=== PATIENT | female | born 1985 | race Two or more races ===

== ENCOUNTER 2024-05-24 08:45 | Outpatient (AMB) | payer BC, SELFPAY ==
--- NOTE | 2024-05-24 08:42 | OBCLNT_ITS ---
Vital Signs 05/24/24 09:07 Height 1.6 m Height Method Stated Weight 96.842 kg Weight Measurement Method Standing Scale BMI 37.8 BP 117/81 Blood Pressure Source Automatic Cuff Blood Pressure Location Left Upper Arm Position Sitting Respiration 14 Pulse 85 Pulse Source Monitor Temp 97.3 F Temp Source Oral Pulse Oximetry (%) 98 Oxygen Delivery Method Room Air Allergies/Home Meds Allergies & Medications Allergies No Known Allergies Allergy (Verified 05/24/24 08:43) Medication Reconciliation blood sugar diagnostic (Blood Glucose Test strips) #120 ea 05/24/24 [Rx] blood-glucose meter #1 ea 05/24/24 [Rx] labetalol 200 mg tablet 200 mg PO BID 30 days #60 tabs 05/24/24 [Rx] lancets 26 gauge #100 ea 05/24/24 [Rx] metformin 500 mg tablet 500 mg PO BIDWMEAL 30 days #60 tabs 05/24/24 [Rx] Intake Visit Data Collection New Patient or Established: Established Patient (seen at [facility] within 3 years) Reason for Visit:: care Seen by Clinical Staff ONLY (RN/MA): No Aircraft Systems Technician Required: Yes 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 1. Little interest or pleasure in doing things: not at all 2. Feeling down, depressed, or hopeless: not at all Total score: 0 PHQ-9 3. Trouble falling or staying asleep, or sleeping too much: Not at all 4. Feeling tired or having little energy: Not at all 5. Poor appetite or overeating: Not at all 6. Feeling bad about yourself - or that you are a failure or have let yourself or your family down: Not at all 7. Trouble concentrating on things, such as reading the newspaper or watching television: Not at all 8. Moving or speaking so slowly that other people could have noticed? - Or the opposite - being so fidgety or restless that you have been moving around a lot more than usual: not at all 9. Thoughts that you would be better off or of hurting yourself in some way: Not at all Total score: 0 Source: Developed by Drs. Chandan Miranda, Polly Mobley, Wood Torres and colleagues, with an educational gale from [employer]. Depression screen completed yes Social History Living Situation History Marital Status: Lives With: Family Housing: House Tobacco History Smoking Status: Never smoker Second Hand Smoke Exposure: No Alcohol History Alcohol Intake: Never Substance Use History Substance Use: no Domestic Abuse History Do You Feel Safe at Home: Yes Past Medical History Past Medical History Have you ever been diagnosed with any of the following: Neurological Problems Cerebrovascular Accident (CVA): No Transient Ischemic Attacks (TIA): No Dementia: No Alzheimer's Disease: No Parkinson's Disease: No Brain Tumor: No Meningitis: No Seizures: No Epilepsy: No Multiple Sclerosis: No Cerebral Palsy: No Amyotrophic Lateral Sclerosis (ALS/Margarette Gehrig's): No Guillain-[place] Syndrome: No Spina Bifida: No Paralysis: No Peripheral Neuropathy: No David's Palsy: No Subdural Hematoma: No Migraine: No Head Trauma: No Spinal Cord Injury: No Traumatic Brain Injury: No Cardiology Problems Myocardial Infarction: No Cardiac Arrhythmia: No Atrial Fibrillation: No Angina: No Heart Murmur: No Coronary Artery Disease: No Atherosclerotic Heart Disease: No Peripheral Vascular Disease: No Hypercholesterolemia: No Aneurysm: No Congestive Heart Failure: No Congenital Heart Disease: No Valvular Heart Disease: No Rheumatic Fever: No Cardiomyopathy: No Edema: No Pericarditis: No Cellulitis: No Hypertension: Yes (TAKES MED) Varicose Veins: No Respiratory Problems Chronic Obstructive Pulmonary Disease (COPD): No Asthma: No Bronchitis: No Emphysema: No Pneumonia: No Pulmonary Fibrosis: No Tuberculosis: Yes (2019 NO MED POSITIVE TEST) Pulmonary Embolism: No Pulmonary Edema: No Sleep Apnea: No CPAP Dependent: No Respiratory Aspiration: No Dyspnea: No Orthopnea: No Hx Cough: No Cough: No Wheezing: No Chest Deformities: No Smoking: No Smoking Cessation Counseling: No Smoking Exposure: No Tobacco Use: No Clubbing: No Exposure to Respiratory Irritants: No Intubation: No Stomache/Intestinal Problems Liver Cancer: No Hepatitis: No Cirrhosis: No Pancreatic Cancer: No Pancreatitis: No Celiac Disease: No Gall Bladder Disease: Yes (LAP 2002) Gastrointestinal Bleed: No Esophageal Varices: No Chapa's Esophagus: No Colitis: No Ulcerative Colitis: No Diverticulitis: No Diverticulosis: No Ulcer: No Colorectal Cancer: No Irritable Bowel: No Crohn's Disease: No Obstructive Bowel: No Hiatal Hernia: No Hemorrhoids: No Gastroesophageal Reflux Disease: Yes (OTC) Polyps: No Obesity: Yes Genital/Urinary Problems Chronic Kidney Disease: No Renal Disease: No Kidney Stones: Yes (NO SURG) Polycystic Kidney Disease: No Neurogenic Bladder: No Inguinal Hernia: No Dialysis: No Prostate Cancer: No Benign Prostatic Hyperplasia: No Reproductive Problems Breast Cancer: No Endometriosis: No Fibroids: No Genital Herpes: No Gonorrhea: No Pelvic Inflammatory Disease: No Polycystic Ovarian Syndrome: No Previous Pregnancies: Yes (X4) Syphilis: No Musculoskeletal Problems Muscular Dystrophy: No Myasthenia Gravis: No Marfan's Syndrome: No Bone Cancer: No Arthritis: No Rheumatoid Arthritis: No Osteoporosis: No Degenerative Disk Disease: Yes Gout: No Scoliosis: No Carpal Tunnel Syndrome: No Fibromyalgia: No Fractures: No Degenerative Joint Disease: No Osteomyelitis: No Poliovirus: No Head,Eye,Nose,Throat Problems Cataracts: No Glaucoma: No Blind: No Retinal Detachment: No Macular Degeneration: No Chronic Ear Infections: No Deafness: No Eye Prosthesis: No Endocrine Problems Diabetes Mellitus Type 1: No Diabetes Mellitus Type 2: Yes Hypoglycemia: No Sanam's Syndrome: No [place]'s Disease: No Hyperthyroidism: No Hypothyroidism: Yes (TAKES MED) Thyroid Cancer: No Parathyroid Disease: No Pituitary Disease: No Systemic Lupus Erythematosus: No Syndrome of Inappropriate Antidiuretic Hormone: No Adrenal Disease: No Graves' Disease: No Blood Problems Anemia: No Leukemia: No Hemophilia: No Thalassemia: No Sickle Cell Disease: No Clotting Problems: No Psychologic Problems Schizophrenia: No Recreational Drug Use: No Bipolar Disorder: No Depression: No Anxiety: No Behavior Problems: No Self-Mutilation: No Attention Deficit Disorder: No Attention Deficit Hyperactivity Disorder: No Depression: No Post Traumatic Stress Disorder: No Eating Disorder: No Other Problems Hospitalization: No Autoimmune Disease: No Down Syndrome: No Autism: No Developmental Delay: No Cosmetic Surgery: No Shingles: No Falls: No Blood Transfusions: No Blood Transfusion Reaction: No Anesthesia Reactions: Yes (GI UPSET) Organ Transplant: No Chemotherapy: No Radiation Therapy: No Hyperbaric Therapy: No MRSA: No VRSA: No Vancomycin-Resistant Enterococci: No Human Immunodeficiency Virus (HIV): No Chicken Pox: Yes Measles: Yes Mumps: No Rubella (Cymraes Measles): No Pertussis: No Klebsiella Pneumoniae Carbapenemase Producing Bacteria: No Clostridium Difficile: No Hepatitis A: No Hepatitis B: No Hepatitis C: No Communicable Disease: No Cancer: No Cervical Cancer: No Lung Cancer: No Ovarian Cancer: No Surgical History Angioplasty: No Bariatric Surgery: No Breast Surgery: No Cancer Surgery: No Carotid Endarterectomy: No Pacemaker: No History of Present Illness HPI Narrative 33yo @ 33w2d presents for transfer of care from an outside facility. LMP 7-, ELIZABETH 07-06-2024 based on 10w6d ultrasound on 12-15-2023. History includes advanced maternal age, hypertension, and hypothyroidism. Currently on metformin, labetalol, [place] Thyroid, vitamins, and pantoprazole. Allergic to diphenhydramine. History of 2 C-sections in 2009 and 2013. Patient reports pressure and pain in legs, as well as visual symptoms. Monitoring for preeclampsia due to symptoms. scheduled for June 22 due to high blood pressure. FHR normal at 145 bpm. Patient is checking blood sugars at home but awaiting lancets from pharmacy. Physical Examination: - heart rate: 145 bpm Diagnostic Test Results and Labs: - Ultrasound (12-15-2023): 10-week 6-day ultrasound estimated the due date as 07-04-2024 - Panel (12-02-2023): Blood group O-positive, antibody screen negative, rubella immune, RPR non-reactive, hepatitis B-negative, HIV-negative - TSH (12-02-2023): 0.71 - Gonorrhea and chlamydia (12-02-2023): Negative - Glucose Tolerance Test (12-02-2023): One-hour result was 141 - Hemoglobin A1C (12-02-2023): 6.6 - Cystic fibrosis screen (12-02-2023): Negative OB Initial Visit Menstrual History Menstrual reliability: definite Flow: normal Menstrual regularity: irregular Monthly: No Age at menarche: 7 On control pills at conception: No Date of positive home test: 11/11/23 Associated symptoms (LMP): Reports amenorrhea, nausea, fatigue and irritability OB History : 6 Para: 2 Hx # Pregnancies: 0 Hx Total # of Abortions (Spontaneous & Elective): 3 # of Living Children: 2 Delivery History 1st : Child's name: Alex date: 01/03/10 sex: male Gestational age at delivery (weeks): 36 Delivery type: weight (lbs): 2260 g History of depression before or after : No 2nd : Child's name: Mila date: 08/24/13 sex: female Gestational age at delivery (weeks): 38 Delivery type: weight (lbs): 3682 g History of depression before or after : No Infection History & Risk Evaluation History of STDs: none HIV risk evaluation: low risk Hepatitis B risk evaluation: low risk Patient or partner has history of Genital Herpes: No Varicella/chicken pox status: previous disease Genetic Screening & History Genetic Screening/Teratology Counseling - Includes patient, baby's father, or anyone in either family with: 1. Patient's age 35 years or older as of estimated date of delivery: Yes Infection History Other (see comments) Source: [employer] Review of Systems Review of Systems Systems Reviewed: All systems reviewed, normal except as documented Constitutional Constitutional: Reports fatigue Gastrointestinal Gastrointestinal: Reports nausea Genitourinary Genitourinary: Reports amenorrhea Psychiatric Psychiatric: Reports irritability Endocrine Endocrine: Reports fatigue Exam General Limitations: no limitations General Appearance: alert, in no apparent distress, comfortable, cooperative, healthy appearing, well developed and well groomed Head Head exam: atraumatic, normocephalic and normal inspection Neck Neck exam: Present normal inspection, full ROM and trachea midline Chest Chest inspection: Present normal inspection and symmetric chest wall rise Abdominal Abdominal exam: Present soft and normal bowel sounds External exam: Present normal external exam Speculum exam: Present normal speculum exam Exp External exam: Present normal Extremities Extremities exam: Present normal inspection and full ROM Neuro Neurological exam: Present alert, oriented X3 and CN II-XII intact Psych Psychiatric exam: Present normal affect and normal mood Skin Skin exam: Present warm, dry, intact and normal color Assessment & Plan Diagnosis / Problem List (1) Hypothyroidism affecting : Status: Acute (2) Maternal care for low transverse scar from previous delivery: Status: Acute Plan: Increase antihypertensive medication, new prescription sent to [facility]. Obtain labs to evaluate for preeclampsia. Follow up in one week to review lab results. Continue metformin 500 mg BID. Check blood glucose 4 times daily: fasting and 3 post-prandial. Await lancets from pharmacy for home monitoring. Continue [place] Thyroid 90 mg daily. Continue vitamins. Follow-up ultrasound recommended. Maintain scheduled for June 22. (3) Chronic hypertension affecting : Status: Acute (4) Type 2 diabetes mellitus affecting in third trimester, antepartum: Status: Acute (5) Supervision of high risk , unspecified, third trimester: Status: Acute Office Procedures OB Clinic LOC & Office Proc's Nursing/Assessment Patient Status: Initial/New Patient OB Clinic Nursing Assessment: Medication Reconciliation, Update PMH in EMR and Vital Signs OB Clinic Coordination of Care: AMA, Complex Care and Chronic Disease 1-5, Consent,records obtained, informed consent, Education Simp Pt/Fam, Lab and Imaging orders, Results/Orders obtained and Staff clarify orders Special Needs: Heart tones New Patient Charge New Patient Point Assignment: 1154 New Patient Point Charge: PROPERTY DISPOSAL MANAGER Level 4 ([id number]) Established Patient Charge Established Patient Point Charge: EP Level 4 (120-155) Antepartum Initial or Follow-up Antepartum Initial Visit: Yes OB Ultrasound OB Ultrasound Ultrasound technique:: transabdominal
[2024-05-24 09:07] VITALS: BP 117/81; PULSE 85; RESP 14; TEMP 36.3; O2SAT 98; BMI 37.8
== END 2024-05-24 09:43 | disposition home or self-care (01) ==
LOC: HODSOBC 08:45
PROVIDERS: PCP Obstetrics & Gynecology; Supervising Provider Obstetrics & Gynecology; Visit Provider Obstetrics & Gynecology
DX: O09.523 Supervision of elderly multigravida, third trimester (principal); O09.293 Supervision of pregnancy with other poor reproductive or obstetric history, third trimester; O34.211 Maternal care for low transverse scar from previous cesarean delivery; O09.893 Supervision of other high risk pregnancies, third trimester; O99.283 Endocrine, nutritional and metabolic diseases complicating pregnancy, third trimester; E03.9 Hypothyroidism, unspecified; O10.913 Unspecified pre-existing hypertension complicating pregnancy, third trimester; O24.113 Pre-existing type 2 diabetes mellitus, in pregnancy, third trimester; Z3A.33 33 weeks gestation of pregnancy; Z79.84 Long term (current) use of oral hypoglycemic drugs; Z79.899 Other long term (current) drug therapy
CPT/HCPCS: 99204; 99214; Z1032; G0463

== ENCOUNTER → 2024-05-26 | Outpatient (CLI) | payer BC, SELFPAY ==
[2024-05-26 09:45] LABS: Alanine Aminotransferase 79 U/L (10-49); Albumin, Serum 3.7 gm/dL (3.5-5.0); Albumin/Globulin Ratio 1.6 (1.2-2.2); Alkaline Phosphatase 127 U/L (46-116); Anion Gap 12 (7-16); Aspartate Amino Transferase 66 U/L (0-34); BUN/Creatinine Ratio 18 Ratio (12-20); Bilirubin,Total 0.4 mg/dL (0.3-1.2); Blood Urea Nitrogen 9 mg/dL (9-23); Calcium 8.7 mg/dL (8.3-10.6); Calcium (Corrected) 8.9 mg/dL (8.5-10.1); Carbon Dioxide 20.3 mMol/L (20.0-31.0); Chloride 106 mMol/L (98-107); Creatinine (Component) 0.5 mg/dL (0.6-1.3); Globulin 2.3 gm/dL (2.3-3.5); Glucose 109 mg/dL (74-106); LDH (Lactate Dehydrogenase) 165 U/L (120-246); Osmolality,Calculated 275 (275-295); Potassium 4.1 mMol/L (3.4-5.1); Sodium 138 mMol/L (136-145); eGFR > 60 See Note
== END | disposition home or self-care (01) ==
LOC: COPL 08:34
PROVIDERS: PCP Physician Assistant; Referring Provider Obstetrics & Gynecology; Visit Provider Obstetrics & Gynecology
DX: O09.93 Supervision of high risk pregnancy, unspecified, third trimester (principal)
CPT/HCPCS: 36415; 80053; 83615

== ENCOUNTER 2024-05-30 08:50 | Outpatient (AMB) | payer BC, SELFPAY ==
--- NOTE | 2024-05-30 08:56 | AMB.OBINITIA ---
Vital Signs 05/30/24 08:57 Height 1.6 m Height Method Stated Weight 98.033 kg Weight Measurement Method Standing Scale BMI 38.2 BP 113/75 Blood Pressure Source Automatic Cuff Blood Pressure Location Left Upper Arm Position Sitting Respiration 16 Pulse 88 Pulse Source Monitor Temp 96.3 F L Temp Source Oral Pulse Oximetry (%) 99 Oxygen Delivery Method Room Air Allergies/Home Meds Allergies & Medications Allergies No Known Allergies Allergy (Verified 05/30/24 08:57) Medication Reconciliation blood sugar diagnostic (Blood Glucose Test strips) #120 ea 05/24/24 [Rx Confirmed 05/30/24] blood-glucose meter #1 ea 05/24/24 [Rx Confirmed 05/30/24] labetalol 200 mg tablet 200 mg PO BID 30 days #60 tabs 05/24/24 [Rx Confirmed 05/30/24] lancets 26 gauge #100 ea 05/24/24 [Rx Confirmed 05/30/24] metformin 500 mg tablet 500 mg PO BIDWMEAL 30 days #60 tabs 05/24/24 [Rx Confirmed 05/30/24] levothyroxine 50 mcg tablet 50 mcg PO QDAY 30 days #30 tabs 05/30/24 [Rx] levothyroxine 88 mcg tablet 88 mcg PO QDAY 30 days #30 tabs 05/30/24 [Rx] Intake Visit Data Collection New Patient or Established: Established Patient (seen at [facility] within 3 years) Reason for Visit:: C Seen by Clinical Staff ONLY (RN/MA): No Lamp Tester And Inspector Required: Yes Lamp Tester And Inspector's name/title: JOB SPENCER MA Do You Feel Safe at Home: Yes Authorities Contacted: N/A PCP or OBGYN visit in last 3 months: Yes Date of Last PCP or OBGYN visit: 05/26/24 Hx Now: Yes Are you currently on any form of Control: No Pain Present Currently: No Pain Scale Used: Carrero-Schofield/Numerical Pain scale:: 0 Smoking Status Smoking Status: Never smoker Questionnaires Covid-19 Vaccine Questionnaire Has patient been vacinated for Covid-19 Have you been vacinated for Covid-19: Yes PHQ-9 PHQ-2 Over the last 2 weeks, how often have you been bothered by any of the following problems? 1. Little interest or pleasure in doing things: not at all 2. Feeling down, depressed, or hopeless: not at all Total score: 0 PHQ-9 3. Trouble falling or staying asleep, or sleeping too much: Not at all 4. Feeling tired or having little energy: Not at all 5. Poor appetite or overeating: Not at all 6. Feeling bad about yourself - or that you are a failure or have let yourself or your family down: Not at all 7. Trouble concentrating on things, such as reading the newspaper or watching television: Not at all 8. Moving or speaking so slowly that other people could have noticed? - Or the opposite - being so fidgety or restless that you have been moving around a lot more than usual: not at all 9. Thoughts that you would be better off or of hurting yourself in some way: Not at all Total score: 0 Source: Developed by Drs. Chandan Miranda, Polly Mobley, Wood Torres and colleagues, with an educational gale from [employer]. Depression screen completed yes Social History Living Situation History Lives With: Family Housing: House Tobacco History Smoking Status: Never smoker Second Hand Smoke Exposure: No Alcohol History Alcohol Intake: Never Substance Use History Substance Use: no Domestic Abuse History Do You Feel Safe at Home: Yes Past Medical History Past Medical History Have you ever been diagnosed with any of the following: Neurological Problems Cerebrovascular Accident (CVA): No Transient Ischemic Attacks (TIA): No Dementia: No Alzheimer's Disease: No Parkinson's Disease: No Brain Tumor: No Meningitis: No Seizures: No Epilepsy: No Multiple Sclerosis: No Cerebral Palsy: No Amyotrophic Lateral Sclerosis (ALS/Margarette Gehrig's): No Guillain-[place] Syndrome: No Spina Bifida: No Paralysis: No Peripheral Neuropathy: No David's Palsy: No Subdural Hematoma: No Migraine: No Head Trauma: No Spinal Cord Injury: No Traumatic Brain Injury: No Cardiology Problems Myocardial Infarction: No Cardiac Arrhythmia: No Atrial Fibrillation: No Angina: No Heart Murmur: No Coronary Artery Disease: No Atherosclerotic Heart Disease: No Peripheral Vascular Disease: No Hypercholesterolemia: No Aneurysm: No Congestive Heart Failure: No Congenital Heart Disease: No Valvular Heart Disease: No Rheumatic Fever: No Cardiomyopathy: No Edema: No Pericarditis: No Cellulitis: No Hypertension: Yes (TAKES MED) Varicose Veins: No Respiratory Problems Chronic Obstructive Pulmonary Disease (COPD): No Asthma: No Bronchitis: No Emphysema: No Pneumonia: No Pulmonary Fibrosis: No Tuberculosis: Yes (2019 NO MED POSITIVE TEST) Pulmonary Embolism: No Pulmonary Edema: No Sleep Apnea: No CPAP Dependent: No Respiratory Aspiration: No Dyspnea: No Orthopnea: No Hx Cough: No Cough: No Wheezing: No Chest Deformities: No Smoking: No Smoking Cessation Counseling: No Smoking Exposure: No Tobacco Use: No Clubbing: No Exposure to Respiratory Irritants: No Intubation: No Stomache/Intestinal Problems Liver Cancer: No Hepatitis: No Cirrhosis: No Pancreatic Cancer: No Pancreatitis: No Celiac Disease: No Gall Bladder Disease: Yes (LAP 2002) Gastrointestinal Bleed: No Esophageal Varices: No Chapa's Esophagus: No Colitis: No Ulcerative Colitis: No Diverticulitis: No Diverticulosis: No Ulcer: No Colorectal Cancer: No Irritable Bowel: No Crohn's Disease: No Obstructive Bowel: No Hiatal Hernia: No Hemorrhoids: No Gastroesophageal Reflux Disease: Yes (OTC) Obesity: Yes Genital/Urinary Problems Renal Disease: No Kidney Stones: Yes (NO SURG) Polycystic Kidney Disease: No Neurogenic Bladder: No Inguinal Hernia: No Dialysis: No Prostate Cancer: No Benign Prostatic Hyperplasia: No Reproductive Problems Breast Cancer: No Endometriosis: No Fibroids: No Genital Herpes: No Gonorrhea: No Pelvic Inflammatory Disease: No Polycystic Ovarian Syndrome: No Previous Pregnancies: Yes (X4) Syphilis: No Musculoskeletal Problems Muscular Dystrophy: No Myasthenia Gravis: No Marfan's Syndrome: No Bone Cancer: No Arthritis: No Rheumatoid Arthritis: No Osteoporosis: No Degenerative Disk Disease: Yes Gout: No Scoliosis: No Carpal Tunnel Syndrome: No Fibromyalgia: No Fractures: No Degenerative Joint Disease: No Osteomyelitis: No Poliovirus: No Head,Eye,Nose,Throat Problems Cataracts: No Glaucoma: No Blind: No Retinal Detachment: No Macular Degeneration: No Chronic Ear Infections: No Deafness: No Eye Prosthesis: No Endocrine Problems Diabetes Mellitus Type 1: No Diabetes Mellitus Type 2: Yes Hypoglycemia: No Sanam's Syndrome: No Coryell's Disease: No Hyperthyroidism: No Hypothyroidism: Yes (TAKES MED) Thyroid Cancer: No Parathyroid Disease: No Pituitary Disease: No Systemic Lupus Erythematosus: No Syndrome of Inappropriate Antidiuretic Hormone: No Adrenal Disease: No Graves' Disease: No Blood Problems Anemia: No Leukemia: No Hemophilia: No Thalassemia: No Sickle Cell Disease: No Clotting Problems: No Psychologic Problems Schizophrenia: No Recreational Drug Use: No Bipolar Disorder: No Depression: No Anxiety: No Behavior Problems: No Self-Mutilation: No Attention Deficit Disorder: No Attention Deficit Hyperactivity Disorder: No Depression: No Post Traumatic Stress Disorder: No Eating Disorder: No Other Problems Hospitalization: No Down Syndrome: No Autism: No Developmental Delay: No Cosmetic Surgery: No Shingles: No Falls: No Blood Transfusions: No Blood Transfusion Reaction: No Anesthesia Reactions: Yes (GI UPSET) Organ Transplant: No Chemotherapy: No Radiation Therapy: No Hyperbaric Therapy: No MRSA: No VRSA: No Vancomycin-Resistant Enterococci: No Human Immunodeficiency Virus (HIV): No Chicken Pox: Yes Measles: Yes Mumps: No Rubella ([place] Measles): No Pertussis: No Klebsiella Pneumoniae Carbapenemase Producing Bacteria: No Clostridium Difficile: No Hepatitis A: No Hepatitis B: No Hepatitis C: No Communicable Disease: No Cancer: No Cervical Cancer: No Lung Cancer: No Ovarian Cancer: No Surgical History Angioplasty: No Bariatric Surgery: No Breast Surgery: No Cancer Surgery: No Carotid Endarterectomy: No Pacemaker: No History of Present Illness HPI Narrative Patient reports experiencing persistent leg tightening and denies any leaking or bleeding. She also mentions feeling pressure in her feet, which could be related to [place] contractions, normal uterine contractions during . Patient is managing gestational diabetes and has been monitoring her blood glucose levels. Her morning fasting glucose levels range from 95 to 104 mg/dL, but her post-lunch and post-dinner glucose levels are dropping to concerning levels, with afternoon readings around 100-102 mg/dL and evening readings between 84-91 mg/dL. Patient is also being treated for thyroid issues and is currently taking thyroid medication at doses of 90 mg and 15 mg. She is and managing gestational diabetes. Due to low glucose readings, she is advised to adjust her metformin dosage to one tablet twice a day. Regarding movement, the patient reports that the baby is active, with increased movement noted during the daytime. A heart rate of 165 bpm was observed during the visit, which was noted as normal. The patient is scheduled to see a specialist on the and will be set up for monitoring at the hospital before that. OB Initial Visit Menstrual History Menstrual reliability: definite Flow: normal Menstrual regularity: regular Monthly: Yes Review of Systems Review of Systems Systems Reviewed: All systems reviewed, normal except as documented Exam General Limitations: no limitations General Appearance: alert, in no apparent distress, comfortable, cooperative, healthy appearing, well developed and well groomed Head Head exam: atraumatic, normocephalic and normal inspection Neck Neck exam: Present normal inspection, full ROM and trachea midline Chest Chest inspection: Present normal inspection and symmetric chest wall rise Abdominal Abdominal exam: Present soft and normal bowel sounds Extremities Extremities exam: Present normal inspection and full ROM Back Back exam: Present normal inspection and full ROM Psych Psychiatric exam: Present normal affect and normal mood Skin Skin exam: Present warm, dry, intact and normal color Assessment & Plan Diagnosis / Problem List (1) Hypothyroidism affecting : Status: Acute Plan: Hypothyroidism in : - Continue current thyroid medication: 90 mg and 50 mg doses. - Prescription for thyroid medication to be sent to pharmacy. (2) Maternal care for low transverse scar from previous delivery: Status: Acute (3) Chronic hypertension affecting : Status: Acute Plan: Hypertension in : - Continue current antihypertensive medication. - Monitor for symptoms of preeclampsia, including swelling and increased blood pressure. - Follow up at next week's appointment. (4) Type 2 diabetes mellitus affecting in third trimester, antepartum: Status: Acute Plan: Diagnostic Test Results and Labs: - Blood glucose monitoring results: - Mornin-104 mg/dL - After breakfast: Within normal range (specific values not provided) - After lunch: 100-102 mg/dL - After dinner: 84-91 mg/dL - heart rate: 165 bpm (normal) with Gestational Diabetes Mellitus: - Reduce metformin dosage to 1 tablet twice daily (morning and night). - Continue glucose monitoring and review numbers at next week's appointment. - Arrange for monitoring at the hospital before June 06 specialist appointment. - Follow up in one week. (5) Supervision of high risk , unspecified, third trimester: Status: Acute Plan: To L&D for PIH panel , NST and BPP Office Procedures OB Clinic LOC & Office Proc's Nursing/Assessment Patient Status: Established Patient OB Clinic Nursing Assessment: BP Monitoring, Medication Reconciliation, Update PMH in EMR and Vital Signs OB Clinic Coordination of Care: Consent,records obtained, informed consent, Education Simp Pt/Fam, Results/Orders obtained and Staff clarify orders Special Needs: Heart tones Established Patient Charge Established Patient Point Assignment: 110 Established Patient Point Charge: EP Level 3 (80-115) Antepartum Initial or Follow-up Antepartum Initial Visit: No Antepartum Follow up Visit: Yes
[2024-05-30 08:57] VITALS: BP 113/75; PULSE 88; RESP 16; TEMP 35.7; O2SAT 99; BMI 38.2
== END 2024-05-30 09:12 | disposition home or self-care (01) ==
LOC: HODSOBC 08:50
PROVIDERS: PCP Obstetrics & Gynecology; Supervising Provider Obstetrics & Gynecology; Visit Provider Obstetrics & Gynecology
DX: O24.113 Pre-existing type 2 diabetes mellitus, in pregnancy, third trimester (principal); O34.211 Maternal care for low transverse scar from previous cesarean delivery; O10.919 Unspecified pre-existing hypertension complicating pregnancy, unspecified trimester; E03.9 Hypothyroidism, unspecified
CPT/HCPCS: 99213; G0463

== ENCOUNTER 2024-05-30 09:27 | Observation (INO) | payer BC, SELFPAY ==
[2024-05-30] VITALS (12 sets, daily range): BP systolic 113–136; BP diastolic 58–79; PULSE 74–85; RESP 16–99; TEMP 36.5; BMI 38.2
--- NOTE | 2024-05-30 10:04 | XR_ITS ---
Examination: Complete OB ultrasound greater than 14 weeks Date and time of exam: May 30, 2024 1056 hours INDICATIONS: Diagnosis hypothyroidism, diagnosis type 2 diabetes, diagnosis -induced hypertension Findings: Viable intrauterine single fetus with single amniotic sac presentation cephalic spine posterior Cardiac motion 150 BPM Placenta anterior grade 3 Umbilical cord insertion 3 vessel seen Amniotic fluid index 13.1 cm spine posterior Cervix 4.0 cm Ovaries obscured by bowel gas. Composite estimated gestational age based on BPD, head circumference, abdominal circumference, femur length is 36 weeks 6 days Estimated weight 3052 g. Survey of intracranial anatomy, spinal anatomy, abdominal anatomy, four-chamber heart performed with no abnormalities identified. Impression: Viable intrauterine gestation cephalic presentation.
[2024-05-30 10:59] LABS: Basophils % (Auto) 0 % (0-2.5); Eosinophils # (Auto) 0.1 Thou/mm3 (0.0-0.5); Eosinophils % (Auto) 1 % (0-10); Hematocrit 33.1 % (36.0-46.0); Hemoglobin 11.1 g/dL (12.0-16.0); Immature Granulocytes % (Auto) 0 % (0-0); Immature Granulocytes Auto 0.01 Thou/mm3 (0.00-0.00); Lymphocytes # (Auto) 1.9 Thou/mm3 (1.0-4.8); Lymphocytes % (Auto) 30 % (10-50); Mean Corpuscular HGB Conc 33.5 g/dl (31.0-37.0); Mean Corpuscular Hemoglobin 30.2 pg (25.0-35.0); Mean Corpuscular Volume 90 fL (80-100); Monocytes # (Auto) 0.4 Thou/mm3 (0.0-0.8); Monocytes % (Auto) 6 % (0-12); Neutrophils # (Auto) 3.9 Thou/mm3 (1.8-7.7); Neutrophils % (Auto) 62 % (37-80); Nucleated Red Blood Cell % 0 /100 WBC (0); Platelet Count 218 Thou/mm3 (140-440); RDW Standard Deviation 43.6 fL (36.4-46.3); Red Blood Count 3.68 Miln/mm3 (4.00-5.20); White Blood Count 6.2 Thou/mm3 (3.6-11.0)
[2024-05-30 11:15] LABS: Prothrombin Time 10.9 Seconds (9.0-12.2)
[2024-05-30 11:20] LABS: Collection Type, Urine Clean Catch
[2024-05-30 11:20] LABS: Alanine Aminotransferase 88 U/L (10-49); Albumin, Serum 3.7 gm/dL (3.5-5.0); Albumin/Globulin Ratio 1.4 (1.2-2.2); Alkaline Phosphatase 141 U/L (46-116); Anion Gap 9 (7-16); Aspartate Amino Transferase 58 U/L (0-34); BUN/Creatinine Ratio 18 Ratio (12-20); Bilirubin,Total 0.3 mg/dL (0.3-1.2); Blood Urea Nitrogen 9 mg/dL (9-23); Calcium 9.3 mg/dL (8.3-10.6); Calcium (Corrected) 9.5 mg/dL (8.5-10.1); Carbon Dioxide 20.6 mMol/L (20.0-31.0); Chloride 107 mMol/L (98-107); Creatinine (Component) 0.5 mg/dL (0.6-1.3); Globulin 2.6 gm/dL (2.3-3.5); Glucose 96 mg/dL (74-106); LDH (Lactate Dehydrogenase) 160 U/L (120-246); Osmolality,Calculated 272 (275-295); Sodium 137 mMol/L (136-145); Total Protein 6.3 gm/dL (5.7-8.2); Uric Acid 4.9 mg/dL (3.1-7.8); eGFR > 60 See Note
--- NOTE | 2024-05-30 11:20 | PD.LDPN ---
Documentation for date of: 05/30/24 OB Labor Progress Note Assessment and Plan Comments: Polina is a 38yo with SIUP at 34&5wk presenting to L&D from clinic for APFT and PIH labs per Dr. Caceres. She has a headache today, hasn't tried to take any tylenol yet. She notes no painful/regular ctx, no vaginal bleeding, no lof. Normal movement. She denies vision changes and RUQ pain. complications: CHTN taking labetalol 200mg PO BID Hypothyroidism treated with levothyroxine A2GDM treated with metformin AMA age 38 History of 2 prior sections, scheduled for RLTCS on 22 June ROS negative other than what was described above. Vitals wnl, afebrile General: well developed, well nourished, no acute distress, conversant Cardiac: normal heart rate Lungs: breathing without distress Abdomen: soft, gravid, non-tender, no rebound or guarding Extremities: no pain with palpation of calves NST: Reactive, +accels, no decels, mod stoney [place]: no regular ctx pattern Labs: Hgb 11.1 Plt 218 serum creat 0.5 AST/ALT slightly elevated but stable from 05/26 24hr UP: 243mg Radiology: Complete OB ultrasound greater than 14 weeks Date and time of exam: May 30, 2024 1056 hours INDICATIONS: Diagnosis hypothyroidism, diagnosis type 2 diabetes, diagnosis -induced hypertension Findings: Viable intrauterine single fetus with single amniotic sac presentation cephalic spine posterior Cardiac motion 150 BPM Placenta anterior grade 3 Umbilical cord insertion 3 vessel seen Amniotic fluid index 13.1 cm spine posterior Cervix 4.0 cm Ovaries obscured by bowel gas. Composite estimated gestational age based on BPD, head circumference, abdominal circumference, femur length is 36 weeks 6 days Estimated weight 3052 g. Survey of intracranial anatomy, spinal anatomy, abdominal anatomy, four-chamber heart performed with no abnormalities identified. Impression: Viable intrauterine gestation cephalic presentation. Assessment: Polina is a 38yo with SIUP at 34&5wk presenting to L&D from clinic for APFT and PIH labs. Headache resolved after Tylenol. No evidence of pre-eclampsia. Vitals wnl, benign exam. Reassuring status, GS shows 94%ile. Plan: -Continue routine follow up with OBGYN and antepartum testing -Continue labetalol and other medications as prescribed -Provided reassurance, encouraged good hydration and good adherence to diabetic diet, walking after meals, and compression stockings -Discussed return precautions Beatriz Trujillo MD
[2024-05-30 11:32] LABS: Bacteria,Urine 1+; Bilirubin,Urine Negative (Negative); Blood,Urine Negative (Negative); Clarity,Urine Clear (Clear/Hazy); Color,Urine Lt-Yellow (Lt Yel-Yel); Glucose, Urine Negative (Negative); Ketones,Urine Negative (Negative); Leukocyte Esterase,Urine Positive (Negative); Nitrite,Urine Negative (Negative); PH,Urine 6.5 (5.0-7.0); Protein,Urine Negative (Neg - Trace); RBC,Urine 1 /hpf (0-3); Specific Gravity,Urine 1.008 (1.001-1.035); Squamous Epithelial Cell,Urine 2 /hpf (0-5); Urobilinogen,Urine Negative mg/dL (0.0-1.0); WBC,Urine 1 /hpf (0-5)
[2024-05-30] MEDS: ACETAMINOPHEN 325 MG TABLET 650 MG PO (11:49)
[2024-05-30 11:56] LABS: Fibrinogen 632 mg/dL (175-375)
[2024-05-30 12:32] LABS: Creatinine,Random Urine 29 mg/dL (30-125); Protein Total, Random Urine 6 mg/dL (1-14)
== END 2024-05-30 13:10 | disposition home or self-care (01) ==
PROVIDERS: Obstetrics & Gynecology; Admitting Provider Obstetrics & Gynecology; Visit Provider Obstetrics & Gynecology
DX: O13.3 Gestational [pregnancy-induced] hypertension without significant proteinuria, third trimester (principal); O99.283 Endocrine, nutritional and metabolic diseases complicating pregnancy, third trimester; E03.9 Hypothyroidism, unspecified; O24.113 Pre-existing type 2 diabetes mellitus, in pregnancy, third trimester; E11.9 Type 2 diabetes mellitus without complications; Z3A.34 34 weeks gestation of pregnancy
CPT/HCPCS: 36415; 59025; 59899; 76805; 80053; 81001; 82570; 83615; 84156; 84550; 85025; 85384; 85610; 85730; A9270

== ENCOUNTER → 2024-05-30 | Outpatient (CLI) | payer BC, SELFPAY ==
[2024-05-30 11:30] LABS: Creatinine, Urine Volume 900 mL/24hr (600-1800); Protein Total, Urine Volume 900 mL/24hr (600-1800)
[2024-05-30 11:58] LABS: Creatinine, 24 Hour Urine 0.9 gm/24hr (0.6-1.8); Creatinine,Urine 99 mg/dL (30-125); Protein Total, 24 hr Urine 243 mg/24hr (<149); Protein Total, Urine 27 mg/dL (1-14)
== END | disposition home or self-care (01) ==
LOC: SLDO 09:41
PROVIDERS: Referring Provider Obstetrics & Gynecology; Visit Provider Obstetrics & Gynecology
DX: O09.93 Supervision of high risk pregnancy, unspecified, third trimester (principal)
CPT/HCPCS: 82570; 84156

== ENCOUNTER 2024-06-06 13:28 | Outpatient (AMB) | payer BC, SELFPAY ==
--- NOTE | 2024-06-06 13:29 | AMB.OBVISIT ---
Vital Signs 06/06/24 13:35 Height 1.6 m Height Method Stated Weight 97.579 kg Weight Measurement Method Standing Scale BMI 38.1 BP 122/78 Blood Pressure Source Automatic Cuff Blood Pressure Location Left Upper Arm Position Sitting Respiration 14 Pulse 82 Pulse Source Monitor Temp 97.2 F Temp Source Oral Pulse Oximetry (%) 97 Oxygen Delivery Method Room Air Allergies/Home Meds Allergies & Medications Allergies No Known Allergies Allergy (Verified 06/06/24 13:36) Medication Reconciliation blood sugar diagnostic (Blood Glucose Test strips) #120 ea 05/24/24 [Rx Confirmed 06/06/24] blood-glucose meter #1 ea 05/24/24 [Rx Confirmed 06/06/24] labetalol 200 mg tablet 200 mg PO BID 30 days #60 tabs 05/24/24 [Rx Confirmed 06/06/24] lancets 26 gauge #100 ea 05/24/24 [Rx Confirmed 06/06/24] metformin 500 mg tablet 500 mg PO BIDWMEAL 30 days #60 tabs 05/24/24 [Rx Confirmed 06/06/24] levothyroxine 50 mcg tablet 50 mcg PO QDAY 30 days #30 tabs 06/06/24 [Rx] levothyroxine 88 mcg tablet 88 mcg PO QDAY 30 days #30 tabs 06/06/24 [Rx] Intake Visit Data Collection New Patient or Established: Established Patient (seen at [facility] within 3 years) Reason for Visit:: CARE Seen by Clinical Staff ONLY (RN/MA): No Supervisor [employer] Required: Yes Supervisor [employer]'s name/title: JOB SPENCER MA Do You Feel Safe at Home: Yes Authorities Contacted: N/A PCP or OBGYN visit in last 3 months: Yes Date of Last PCP or OBGYN visit: 05/30/24 Hx Now: Yes Are you currently on any form of Control: No Last menstrual period: 08/30/23 Pain Present Currently: No Pain Scale Used: Carrero-Schofield/Numerical Pain scale:: 0 Smoking Status Smoking Status: Never smoker Questionnaires Covid-19 Vaccine Questionnaire Has patient been vacinated for Covid-19 Have you been vacinated for Covid-19: Yes PHQ-9 PHQ-2 Over the last 2 weeks, how often have you been bothered by any of the following problems? 1. Little interest or pleasure in doing things: not at all 2. Feeling down, depressed, or hopeless: not at all Total score: 0 PHQ-9 3. Trouble falling or staying asleep, or sleeping too much: Not at all 4. Feeling tired or having little energy: Not at all 5. Poor appetite or overeating: Not at all 6. Feeling bad about yourself - or that you are a failure or have let yourself or your family down: Not at all 7. Trouble concentrating on things, such as reading the newspaper or watching television: Not at all 8. Moving or speaking so slowly that other people could have noticed? - Or the opposite - being so fidgety or restless that you have been moving around a lot more than usual: not at all 9. Thoughts that you would be better off or of hurting yourself in some way: Not at all Total score: 0 Source: Developed by Drs. Chandan Miranda, Polly Mobley, Wood Torres and colleagues, with an educational gale from [employer]. Depression screen completed yes Social History Living Situation History Marital Status: Lives With: Family Housing: House Tobacco History Smoking Status: Never smoker Second Hand Smoke Exposure: No Alcohol History Alcohol Intake: Never Substance Use History Substance Use: no Domestic Abuse History Do You Feel Safe at Home: Yes Past Medical History Past Medical History Have you ever been diagnosed with any of the following: Neurological Problems Cerebrovascular Accident (CVA): No Transient Ischemic Attacks (TIA): No Dementia: No Alzheimer's Disease: No Parkinson's Disease: No Brain Tumor: No Meningitis: No Seizures: No Epilepsy: No Multiple Sclerosis: No Cerebral Palsy: No Amyotrophic Lateral Sclerosis (ALS/Margarette Gehrig's): No Guillain-[place] Syndrome: No Spina Bifida: No Paralysis: No Peripheral Neuropathy: No David's Palsy: No Subdural Hematoma: No Migraine: No Head Trauma: No Spinal Cord Injury: No Traumatic Brain Injury: No Cardiology Problems Myocardial Infarction: No Cardiac Arrhythmia: No Atrial Fibrillation: No Angina: No Heart Murmur: No Coronary Artery Disease: No Atherosclerotic Heart Disease: No Peripheral Vascular Disease: No Hypercholesterolemia: No Aneurysm: No Congestive Heart Failure: No Congenital Heart Disease: No Valvular Heart Disease: No Rheumatic Fever: No Cardiomyopathy: No Edema: No Pericarditis: No Cellulitis: No Hypertension: Yes (TAKES MED) Varicose Veins: No Respiratory Problems Chronic Obstructive Pulmonary Disease (COPD): No Asthma: No Bronchitis: No Emphysema: No Pneumonia: No Pulmonary Fibrosis: No Tuberculosis: Yes (2019 NO MED POSITIVE TEST) Pulmonary Embolism: No Pulmonary Edema: No Sleep Apnea: No CPAP Dependent: No Respiratory Aspiration: No Dyspnea: No Orthopnea: No Hx Cough: No Cough: No Wheezing: No Chest Deformities: No Smoking: No Smoking Cessation Counseling: No Smoking Exposure: No Tobacco Use: No Clubbing: No Exposure to Respiratory Irritants: No Intubation: No Stomache/Intestinal Problems Liver Cancer: No Hepatitis: No Cirrhosis: No Pancreatic Cancer: No Pancreatitis: No Celiac Disease: No Gall Bladder Disease: Yes (LAP 2002) Gastrointestinal Bleed: No Esophageal Varices: No Chapa's Esophagus: No Colitis: No Ulcerative Colitis: No Diverticulitis: No Diverticulosis: No Ulcer: No Colorectal Cancer: No Irritable Bowel: No Crohn's Disease: No Obstructive Bowel: No Hiatal Hernia: No Hemorrhoids: No Gastroesophageal Reflux Disease: Yes (OTC) Obesity: Yes Genital/Urinary Problems Renal Disease: No Kidney Stones: Yes (NO SURG) Polycystic Kidney Disease: No Neurogenic Bladder: No Inguinal Hernia: No Dialysis: No Prostate Cancer: No Benign Prostatic Hyperplasia: No Reproductive Problems Breast Cancer: No Endometriosis: No Fibroids: No Genital Herpes: No Gonorrhea: No Pelvic Inflammatory Disease: No Polycystic Ovarian Syndrome: No Previous Pregnancies: Yes (X4) Syphilis: No Musculoskeletal Problems Muscular Dystrophy: No Myasthenia Gravis: No Marfan's Syndrome: No Bone Cancer: No Arthritis: No Rheumatoid Arthritis: No Osteoporosis: No Degenerative Disk Disease: Yes Gout: No Scoliosis: No Carpal Tunnel Syndrome: No Fibromyalgia: No Fractures: No Degenerative Joint Disease: No Osteomyelitis: No Poliovirus: No Head,Eye,Nose,Throat Problems Cataracts: No Glaucoma: No Blind: No Retinal Detachment: No Macular Degeneration: No Chronic Ear Infections: No Deafness: No Eye Prosthesis: No Endocrine Problems Diabetes Mellitus Type 1: No Diabetes Mellitus Type 2: Yes Hypoglycemia: No [place]'s Syndrome: No Murray's Disease: No Hyperthyroidism: No Hypothyroidism: Yes (TAKES MED) Thyroid Cancer: No Parathyroid Disease: No Pituitary Disease: No Systemic Lupus Erythematosus: No Syndrome of Inappropriate Antidiuretic Hormone: No Adrenal Disease: No Graves' Disease: No Blood Problems Anemia: No Leukemia: No Hemophilia: No Thalassemia: No Sickle Cell Disease: No Clotting Problems: No Psychologic Problems Schizophrenia: No Recreational Drug Use: No Bipolar Disorder: No Depression: No Anxiety: No Behavior Problems: No Self-Mutilation: No Attention Deficit Disorder: No Attention Deficit Hyperactivity Disorder: No Depression: No Post Traumatic Stress Disorder: No Eating Disorder: No Other Problems Hospitalization: No Down Syndrome: No Autism: No Developmental Delay: No Cosmetic Surgery: No Shingles: No Falls: No Blood Transfusions: No Blood Transfusion Reaction: No Anesthesia Reactions: Yes (GI UPSET) Organ Transplant: No Chemotherapy: No Radiation Therapy: No Hyperbaric Therapy: No MRSA: No VRSA: No Vancomycin-Resistant Enterococci: No Human Immunodeficiency Virus (HIV): No Chicken Pox: Yes Measles: Yes Mumps: No Rubella (Vincentian Measles): No Pertussis: No Klebsiella Pneumoniae Carbapenemase Producing Bacteria: No Clostridium Difficile: No Hepatitis A: No Hepatitis B: No Hepatitis C: No Communicable Disease: No Cancer: No Cervical Cancer: No Lung Cancer: No Ovarian Cancer: No Surgical History Angioplasty: No Bariatric Surgery: No Breast Surgery: No Cancer Surgery: No Carotid Endarterectomy: No Pacemaker: No History of Present Illness HPI Narrative History of Present Illness The patient, Polina, had MFM EFW sono today. She reports experiencing episodes of unspecified symptoms, during which she checks her blood sugar and blood pressure, which she states are normal. The patient also complains of poor sleep quality, waking up at least 4 times per night. She attributes this to possible pressure on her bladder. The patient confirms consistent movement, noting increased activity after meals and decreased movement at night. No CTX/LOF/VB, reports good FM+ Review of Systems Review of Systems Systems Reviewed: All systems reviewed, normal except as documented Visit ELIZABETH Calculator Estimated Delivery Date Method Current WG Current Estimate 07/06/24 Ultrasound #1 35w 5d Other Estimates 07/06/24 LMP (Certain) 35w 5d Initial Weight: Not Recorded Date <del>?</del> EGA Weight Edema CTX Effacement BP Fundal ht Pres Dilation Effacement Station Visit Note Alb Glu FHR Mov 05/30/24 <del>?</del> 34w 5d 98.033 kg 113/75 165 active 06/06/24 <del>?</del> 35w 5d 97.579 kg 122/78 155 active Exam General Limitations: no limitations General Appearance: alert, in no apparent distress, comfortable, cooperative, healthy appearing, well developed and well groomed Head Head exam: atraumatic, normocephalic and normal inspection Neck Neck exam: Present normal inspection, full ROM and trachea midline Chest Chest inspection: Present normal inspection and symmetric chest wall rise Abdominal Abdominal exam: Present soft and normal bowel sounds Extremities Extremities exam: Present normal inspection and full ROM Back Back exam: Present normal inspection and full ROM Psych Psychiatric exam: Present normal affect and normal mood Skin Skin exam: Present warm, dry, intact and normal color Assessment & Plan Diagnosis / Problem List (1) Hypothyroidism affecting : Status: Acute (2) Maternal care for low transverse scar from previous delivery: Status: Acute Plan: Patient is a @35w5d with T2DM and CHTN. The fetus is estimated to weigh more than 8 pounds. The patient reports experiencing symptoms that could potentially indicate preeclampsia, including frequent urination and sleep disturbances. However, the patient states her blood sugar and blood pressure have been normal when checked at home. The clinician is concerned about the possibility of preeclampsia and wants to review the ultrasound report before making further decisions. - Obtain and review ultrasound report from hospital - Call patient with ultrasound results and recommendations - Advise patient to come to hospital for evaluation if symptoms recur, particularly to rule out preeclampsia - Consider labs to evaluate for preeclampsia, similar to previous testing - Monitor movement, noting it increases after eating and decreases at night - Follow up with patient via phone call the next day Medication refills Patient reports issues obtaining medication refills that were previously sent to the pharmacy. The specific medications mentioned were doses of 90 and 50, though the exact medications were not specified. - Provide patient with printed prescription to take to pharmacy - Verify refills were sent to correct pharmacy Pt Education Educated the patient on labor signs, including regular contractions, lower back pain, and changes in vaginal discharge. Advised avoiding heavy lifting and getting adequate rest. Instructed to contact the office immediately if any signs occur. Discussed the importance of a balanced diet rich in folic acid, iron, and calcium, and provided a list of recommended and to-avoid foods. Emphasized avoiding high-sugar foods to reduce gestational diabetes risk. Encouraged hydration and frequent, small meals for energy. (3) Chronic hypertension affecting : Status: Acute (4) Type 2 diabetes mellitus affecting in third trimester, antepartum: Status: Acute (5) Supervision of high risk , unspecified, third trimester: Status: Acute Office Procedures OB Clinic LOC & Office Proc's Nursing/Assessment Patient Status: Established Patient OB Clinic Nursing Assessment: Medication Reconciliation, Update PMH in EMR and Vital Signs OB Clinic Coordination of Care: AMA, Complex Care and Chronic Disease 1-5, Consent,records obtained, informed consent, Education Simp Pt/Fam, Results/Orders obtained and Staff clarify orders Special Needs: Heart tones Established Patient Charge Established Patient Point Assignment: 140 Established Patient Point Charge: EP Level 4 (120-155)
[2024-06-06 13:35] VITALS: BP 122/78; PULSE 82; RESP 14; TEMP 36.2; O2SAT 97; BMI 38.1
== END 2024-06-06 13:50 | disposition home or self-care (01) ==
LOC: HODSOBC 13:28
PROVIDERS: PCP Obstetrics & Gynecology; Referring Provider Obstetrics & Gynecology; Supervising Provider Obstetrics & Gynecology; Visit Provider Obstetrics & Gynecology
DX: O24.113 Pre-existing type 2 diabetes mellitus, in pregnancy, third trimester (principal); O09.93 Supervision of high risk pregnancy, unspecified, third trimester; Z3A.35 35 weeks gestation of pregnancy; E03.9 Hypothyroidism, unspecified; O99.283 Endocrine, nutritional and metabolic diseases complicating pregnancy, third trimester; O34.211 Maternal care for low transverse scar from previous cesarean delivery
CPT/HCPCS: 99214; G0463

== ENCOUNTER 2024-06-22 10:09 | Inpatient (IN) | payer OTHER, SELFPAY ==
[2024-06-22] VITALS (14 sets, daily range): BP systolic 122–151; BP diastolic 72–92; PULSE 61–87; RESP 11–20; TEMP 36.4–36.6; O2SAT 97–100; BMI 35.7
[2024-06-22 11:25] LABS: Basophils % (Auto) 0 % (0-2.5); Eosinophils # (Auto) 0.1 Thou/mm3 (0.0-0.5); Eosinophils % (Auto) 1 % (0-10); Hematocrit 34.4 % (36.0-46.0); Hemoglobin 11.9 g/dL (12.0-16.0); Immature Granulocytes % (Auto) 0 % (0-0); Immature Granulocytes Auto 0.01 Thou/mm3 (0.00-0.00); Lymphocytes # (Auto) 1.8 Thou/mm3 (1.0-4.8); Lymphocytes % (Auto) 26 % (10-50); Mean Corpuscular HGB Conc 34.6 g/dl (31.0-37.0); Mean Corpuscular Hemoglobin 30.1 pg (25.0-35.0); Mean Corpuscular Volume 87 fL (80-100); Monocytes # (Auto) 0.4 Thou/mm3 (0.0-0.8); Monocytes % (Auto) 5 % (0-12); Neutrophils # (Auto) 4.7 Thou/mm3 (1.8-7.7); Neutrophils % (Auto) 67 % (37-80); Nucleated Red Blood Cell % 0 /100 WBC (0); Platelet Count 239 Thou/mm3 (140-440); RDW Standard Deviation 42.1 fL (36.4-46.3); Red Blood Count 3.96 Miln/mm3 (4.00-5.20); White Blood Count 6.9 Thou/mm3 (3.6-11.0)
--- NOTE | 2024-06-22 11:42 | PD.LDHP ---
Documentation for date of: 06/22/24 OB Labor/Induct. HPI History of Present Illness Chief complaint: Schedule repeat low-transverse section : 6 Para: 2 pregnancies: 0 Living children: 2 History of Abortions: Spontaneous and Elective: 3 History of sections: Yes (X2) ELIZABETH: 07/06/24 History of present illness: 33yo @ 38w0d presents for her scheduled delivery . Patient initially presented for transfer of care from an outside facility. LMP 09-29-2023, ELIZABETH 07-06-2024 based on 10w6d ultrasound on 12-15-2023. History includes advanced maternal age, hypertension, and hypothyroidism. Currently on metformin, labetalol, [place] Thyroid, vitamins, and pantoprazole. Allergic to diphenhydramine. History of 2 C-sections in 2009 and 2013. Patient reports pressure and pain in legs, as well as visual symptoms. Monitoring for preeclampsia due to symptoms. scheduled for June 22 due to high blood pressure. FHR normal at 145 bpm. Patient is checking blood sugars at home but awaiting lancets from pharmacy. From her records: - Ultrasound (12-15-2023): 10-week 6-day ultrasound estimated the due date as 07-04-2024 - Panel (12-02-2023): Blood group O-positive, antibody screen negative, rubella immune, RPR non-reactive, hepatitis B-negative, HIV-negative - TSH (12-02-2023): 0.71 - Gonorrhea and chlamydia (12-02-2023): Negative - Glucose Tolerance Test (12-02-2023): One-hour result was 141 - Hemoglobin A1C (12-02-2023): 6.6 - Cystic fibrosis screen (12-02-2023): Negative History of Present Adequate Care: Yes Review of Systems Review of Systems Systems Reviewed: All systems reviewed, normal except as documented Past Medical History Surgical History SURGICAL: Positive Section (X2) Meds Home Medications and Allergies Allergies Allergy/AdvReac Type Severity Reaction Status Date / Time No Known Allergies Allergy Verified 06/22/24 11:01 OB Exam Physical Exam Vital signs: Temp Pulse Resp BP Pulse Ox 97.6 F 77 16 127/74 98 06/22/24 11:38 06/22/24 11:25 06/22/24 11:38 06/22/24 11:38 06/22/24 11:38 Constitutional Constitutional: no acute distress Routine HEENT Exam Head: Present normocephalic and atraumatic Eye: Present EOMI and PERRL ENT: Present mucous membranes moist Routine Neck Exam Neck: Present supple and trachea midline Routine Cardiovascular Exam Cardiovascular: Present RRR Routine Abdominal Exam Abdominal: Present soft and normoactive bowel sounds Detailed Labor and Delivery Exam Dilation (cm): 0 Baseline heart rate: 145 monitor accelerations: 15x15 monitor decelerations: None Routine Extremities Exam Extremities: Present full ROM Routine Skin Exam Skin: Present intact, dry and warm Routine Neurological Exam Neurological: Present alert, oriented X3 and CN II-XII intact Routine Psychiatric Exam Psychiatric: Present normal affect and normal thought process OB Results Labs 06/22/24 11:13 Labs: Short CBC 06/22/24 Range/Units 11:13 WBC 6.9 (3.6-11.0) Thou/mm3 Hgb 11.9 L (12.0-16.0) g/dL Hct 34.4 L (36.0-46.0) % Plt Count 239 (140-440) Thou/mm3 OB Assessment & Plan Assessment and Plan (1) Hypothyroidism affecting : Status: Acute (2) Maternal care for low transverse scar from previous delivery: Status: Acute Assessment and plan: Admit to inpatient status for repeat low transverse IV access, CBC, type and screen, LR at 125, RPR, COVID-19 test GBS negative Ancef 2 g prior to surgery start Jiménez catheter to drainage SCDs for DVT prophylaxis Anesthesia to preop for spinal anesthesia Scheduled for surgery. (3) Chronic hypertension affecting : Status: Acute (4) Type 2 diabetes mellitus affecting in third trimester, antepartum: Status: Acute (5) Supervision of high risk , unspecified, third trimester: Status: Acute (6) delivery delivered: Status: Acute
[2024-06-22 12:03] LABS: Syphilis Nonreactive (Nonreactive)
[2024-06-22 13:06] LABS: Glucose Estimated Average 120 mg/dL (80-131); Hemoglobin A1C 5.8 % Hgb (4.8-6.0)
[2024-06-22 13:11] LABS: Fibrinogen 573 mg/dL (175-375); Partial Thromboplastin Time 25.8 Seconds (22.0-36.0); Prothrombin Time 10.9 Seconds (9.0-12.2)
[2024-06-22 13:12] LABS: Alanine Aminotransferase 37 U/L (10-49); Albumin, Serum 3.7 gm/dL (3.5-5.0); Albumin/Globulin Ratio 1.4 (1.2-2.2); Alkaline Phosphatase 174 U/L (46-116); Anion Gap 11 (7-16); Aspartate Amino Transferase 49 U/L (0-34); BUN/Creatinine Ratio 17 Ratio (12-20); Bilirubin,Total 0.4 mg/dL (0.3-1.2); Blood Urea Nitrogen 10 mg/dL (9-23); Calcium 8.8 mg/dL (8.3-10.6); Carbon Dioxide 21.2 mMol/L (20.0-31.0); Chloride 104 mMol/L (98-107); Creatinine (Component) 0.6 mg/dL (0.6-1.3); Globulin 2.6 gm/dL (2.3-3.5); Glucose 80 mg/dL (74-106); LDH (Lactate Dehydrogenase) 136 U/L (120-246); Osmolality,Calculated 269 (275-295); Potassium 3.9 mMol/L (3.4-5.1); Sodium 136 mMol/L (136-145); Total Protein 6.3 gm/dL (5.7-8.2); Uric Acid 4.9 mg/dL (3.1-7.8); eGFR > 60 See Note
--- NOTE | 2024-06-22 13:42 | ESOP_ITS ---
Operative Note - [employer] Procedure Date of procedure: 06/22/24 Procedure Performed: Repeat low-transverse section Indication: Previous section Chronic hypertension on labetalol Type II DM on metformin 38 weeks and 0 days gestation Anesthesia type: Spinal Procedure description: Informed consent was obtained and the patient was taken to the operating room. Identity was confirmed by double identifiers and she was placed on the operating table. Spinal anesthesia was administered and she was positioned in the supine position. The abdomen and perineum were prepped in the usual sterile fashion and a Jiménez catheter was placed to continuous drainage. Sterile drapes were applied. The incision site was tested for adequacy of anesthesia. A Pfannenst iel skin incision was made with a scalpel and carried to the subcutaneous fat up to the rectus fascia. The rectus fascia was incised on either side of the midline and the incisions were extended bilaterally. The fascia was gently dissected off the ventral surface of the rectus muscle both superiorly and inferiorly. The rectus bellies were gently in the midline and the peritoneum was identified and entered bluntly using the surgeon's finger. The peritoneal opening was now stretched to create an adequate opening for access to the uterus. Aric O-ring retractor was placed for adequate visualization. The anterior surface of the uterus was palpated. The bladder reflection was identified and a Lester Mullen low transverse uterine incision was made in the lower uterine segment taking care to avoid the bladder. Uterine entry was accomplished bluntly and the opening was stretched to create adequate room. The amniotic membranes were now ruptured and clear amniotic fluid was released. The fetus was noted to be in the vertex position. The head was gently elevated out of the maternal pelvis and single loop of nuchal cord was found around the neck. The cord was released and the rest of the shoulders and body were delivered by gentle fundal pressure. Umbilical cord was doubly clamped, divided and the infant was handed over to the waiting team. Cord gas samples were obtained. The placenta was delivered by gentle traction on the umbilical cord. The interior of the uterus was now thoroughly cleaned of all blood and debris and membranes. The hysterotomy angles were grasped by a pair of Allis clamps and the hysterotomy was closed using 1 Monocryl suture in 2 layers. The first layer was used to approximate the muscle in a running locked fashion, the second layer was used to approximate the thickness of the myometrium and uterine serosa in an imbricated manner. Some bleeding was noted from the left part of the uterine incision and a couple of [id number] sutures were placed to achieve hemostasis. Once the repair was completed the hysterotomy was inspected and noted to be adequately hemostatic. A layer of Surgicel snow was placed for additional hemostasis. The hysterotomy was once again inspected and hemostasis was noted to be satisfactory. The Aric retractor was now removed. The peritoneal edges were re approximated. The rectus muscles were re approximated. Some amount of oozing was noted from the apex of the peritoneal opening and [id number] stitches were applied to achieve hemostasis The rectus fascia was now repaired using 1 strata fix suture in a running fashion. The subcutaneous layer was now copiously irrigated using warm normal saline. All bleeding points were cauterized using the Bovie. The subcutaneous fat was closed using 3-0 Vicryl. The skin was closed using 4-0 Monocryl in a subcuticular fashion. The skin was cleaned and a sterile dressing was applied. The patient was now undraped, the abdomen and back were thoroughly cleaned and she was transferred to the recovery room in a stable and awake condition. The patient tolerated the entire procedure well. No complications were encountered. All instrument, sponge and lap counts were correct x2. Estimated blood loss (ml): 600 Complications: none Surgical staff Operation Date: 06/22/24 12:45 Case Staff Anesthesiologist: Khurram Hemphill RN First Assistant: Radha Julien Diagnosis Discharge Diagnosis (1) Hypothyroidism affecting : Status: Acute (2) Maternal care for low transverse scar from previous delivery: Status: Acute (3) Chronic hypertension affecting : Status: Acute (4) Type 2 diabetes mellitus affecting in third trimester, antepartum: Status: Acute (5) Supervision of high risk , unspecified, third trimester: Status: Acute (6) delivery delivered: Status: Acute Problem List Completed Was Problem List Reviewed/Reconciled?: Yes
[2024-06-22] MEDS: LABETALOL 100 MG TABLET 300 MG PO (16:23)
[2024-06-22] MEDS: RINGERS LACTATED 1000 ML 1,000 ML 100 ML IV (16:27)
--- NOTE | 2024-06-22 21:16 | PD.ANESPROG ---
Documentation for date of: 06/22/24 Anesthesia Progress Note Progress Note Most recent Vital Signs: Last Vital Signs Temp 97.8 F 06/22/24 14:30 Pulse 67 06/22/24 16:47 Resp 17 06/22/24 16:47 BP 136/77 H 06/22/24 16:47 Pulse Ox 100 06/22/24 16:47 O2 Del Method Room Air 06/22/24 16:47 Narrative: S/P C Section with SAB earlier today at 1330. During the procedure she developed dizziness which continued after discharge to her post op room. This evening received a call from RN stating the dizziness continued and also patient complained about a mild headache. . Initially I had ordered a 500ml bolus of fluid and 1000mg of IV Tylenol. I have returned now to evaluate the patient. 2119 Patient continues to have dizziness with mild with her eyes closed but increased dizziness with eyes open. Also has mild headache and and pressure in her forehead and behind her eyes. VSS Recent fluid bolus of 500ml. Oral intake remains low with one episode of vomiting but no complaint of nausea. PERRLA with EOM. pupils equal and reactive. Cranial Nerves intact. Motor and sensory exams of upper and lower extremities equal and normal. PLAN. Encourage oral intake. Another 500ml bolus of fluids. Repeat Tylenol of headache / forehead pressure. Will reevuluate in the morning. Khurram Hemphill MD
[2024-06-22] MEDS: ACETAMINOPHEN IVPB 1,000 MG/100 ML VIAL 250 MG IV (22:23)
[2024-06-23] VITALS (7 sets, daily range): BP systolic 106–127; BP diastolic 60–79; PULSE 76–98; RESP 17–97; TEMP 36.4–36.7; O2SAT 96–97
[2024-06-23] MEDS: ACETAMINOPHEN IVPB 1,000 MG/100 ML VIAL 250 MG IV (04:32)
[2024-06-23 05:53] LABS: Basophils % (Auto) 0 % (0-2.5); Eosinophils % (Auto) 0 % (0-10); Hematocrit 29.9 % (36.0-46.0); Hemoglobin 10.1 g/dL (12.0-16.0); Immature Granulocytes % (Auto) 0 % (0-0); Immature Granulocytes Auto 0.03 Thou/mm3 (0.00-0.00); Lymphocytes # (Auto) 2.5 Thou/mm3 (1.0-4.8); Lymphocytes % (Auto) 24 % (10-50); Mean Corpuscular HGB Conc 33.8 g/dl (31.0-37.0); Mean Corpuscular Hemoglobin 29.4 pg (25.0-35.0); Mean Corpuscular Volume 87 fL (80-100); Monocytes # (Auto) 0.7 Thou/mm3 (0.0-0.8); Monocytes % (Auto) 6 % (0-12); Neutrophils # (Auto) 7.3 Thou/mm3 (1.8-7.7); Neutrophils % (Auto) 69 % (37-80); Nucleated Red Blood Cell % 0 /100 WBC (0); Platelet Count 220 Thou/mm3 (140-440); RDW Standard Deviation 42.1 fL (36.4-46.3); Red Blood Count 3.43 Miln/mm3 (4.00-5.20); White Blood Count 10.5 Thou/mm3 (3.6-11.0)
[2024-06-23] MEDS: RINGERS LACTATED 1000 ML 1,000 ML 100 ML IV (07:24)
--- NOTE | 2024-06-23 08:18 | PD.LDPPPRG ---
Subjective Subjective Interval history: Patient is a 38-year-old -0-3-3 status post repeat yesterday. Dr. Caceres performed her around lunchtime. Patient is postop day #1 today. She is reporting dizziness. She states she is even dizzy with her eyes closed. Her nurse at bedside states she was actually worse yesterday. Her hemoglobin is stable this morning from 11.9-10.1. We will definitely check this tomorrow. Plan is to hold blood pressure medication and metformin. Fluid bolus now. Recheck CBC in the morning. Jiménez out around lunchtime. Patient states her bleeding is a little heavier this time she reports a frontal headache with the dizziness but no real signs of a spinal headache. Dr. Hemphill from anesthesia did see her yesterday and will likely round on her today. May be consider scopolamine patch for symptoms Exam Vital Signs Temp Pulse Resp BP Pulse Ox O2 Del Method 97.6 F 76 18 109/65 97 Room Air 06/23/24 03:20 06/23/24 03:20 06/23/24 03:20 06/23/24 03:20 06/23/24 03:20 06/23/24 03:20 Narrative Exam Patient is alert and oriented x 3 sure her is helping her eat breakfast. Patient reports dizziness. She is Georgian-speaking only and translation is through one of the RNs. She denies fever she states her pain is controlled she states last time she had a she did pass out so that is why she still has her Jiménez catheter in place. She denies any history of blood transfusions after sections. Routine Abdominal Exam Abdominal: Present soft Comments: Dressing in place fundus firm nontender no rebound no guarding no signs of an acute abdomen Additional findings Additional findings: No significant edema no erythema of lower extremities Objective Labs 06/23/24 04:35 06/22/24 12:31 Labs: Laboratory Results - last 24 hr 06/22/24 06/22/24 06/23/24 11:13 12:31 04:35 WBC 6.9 10.5 D RBC 3.96 L 3.43 L Hgb 11.9 L 10.1 L Hct 34.4 L 29.9 L MCV 87 87 MCH 30.1 29.4 MCHC 34.6 33.8 RDW Std Deviation 42.1 42.1 Plt Count 239 220 Neut % (Auto) 67 69 Lymph % (Auto) 26 24 [place] % (Auto) 5 6 Eos % (Auto) 1 0 Baso % (Auto) 0 0 Neut # (Auto) 4.7 7.3 Lymph # (Auto) 1.8 2.5 [place] # (Auto) 0.4 0.7 Eos # (Auto) 0.1 0.0 Baso # (Auto) 0.0 0.0 Immature Gran # (Auto) 0.01 H 0.03 H Absolute Nucleated RBC 0.00 0.00 Immature Gran % 0 0 Nucleated RBC % 0 0 PT 10.9 INR 1.0 APTT 25.8 Fibrinogen 573 H Sodium 136 Potassium 3.9 Chloride 104 Carbon Dioxide 21.2 Anion Gap 11 BUN 10 Creatinine 0.6 Estim Creat Clear Calc 144.0 eGFR > 60 BUN/Creatinine Ratio [address] Glu mg/dL 120 Hemoglobin A1c 5.8 Calculated Osmolality 269 L Uric Acid 4.9 Calcium 8.8 Corrected Calcium 9.0 Total Bilirubin 0.4 AST 49 H ALT 37 Alkaline Phosphatase 174 H Lactate Dehydrogenase 136 Total Protein 6.3 Albumin 3.7 Globulin 2.6 Albumin/Globulin Ratio 1.4 Syphilis Serology Nonreactive Blood Type O Positive Antibody Screen NEGATIVE Crossmatch See Detail Blood Bank Wristband ID Yes Assessment & Plan Problem List (1) Hypothyroidism affecting : Problem details: Continue thyroid replacement Status: Acute (2) Maternal care for low transverse scar from previous delivery: Problem details: Routine post care. Fluid bolus now. Keep IV in place. Jiménez out in 24 hours which is lunchtime Status: Acute (3) Chronic hypertension affecting : Problem details: Hold labetalol as patient is dizzy Status: Acute (4) Type 2 diabetes mellitus affecting in third trimester, antepartum: Problem details: Hold metformin as patient is dizzy Status: Acute (5) Supervision of high risk , unspecified, third trimester: Status: Acute (6) delivery delivered: Status: Acute Time Spent With Patient Time: Total time spent is greater than 50% in coordination of care (as documented) at patient's floor/unit and/or counseling patient: Time with patient: less than 15 minutes
[2024-06-23] MEDS: KETOROLAC INJ 30 MG/ML VIAL IVP (08:51)
[2024-06-23] MEDS: DOCUSATE SOD 100 MG CAPSULE PO (08:51)
[2024-06-23] MEDS: ENOXAPARIN SOD INJ 40 MG/0.4 ML SYRINGE SC (08:51)
[2024-06-23] MEDS: IBUPROFEN TAB 400 MG TABLET 800 MG PO ×2 (11:11→21:00)
[2024-06-23] MEDS: RINGERS LACTATED 1000 ML 1,000 ML 125 ML IV (11:41)
[2024-06-23] MEDS: ACETAMINOPHEN 325 MG TABLET 650 MG PO (13:33)
--- NOTE | 2024-06-23 20:56 | PC.NURSE ---
Pt did not want her dressing removed at this time stating that she will remove once she is home and has showered. Per day shift nurse, pt did not want to have her shower here at the hospital
[2024-06-24 05:00] VITALS: BP 126/75; PULSE 88; RESP 20; TEMP 36.6; O2SAT 96
[2024-06-24] MEDS: IBUPROFEN TAB 400 MG TABLET 800 MG PO (05:20)
[2024-06-24 05:53] LABS: Basophils % (Auto) 0 % (0-2.5); Eosinophils # (Auto) 0.2 Thou/mm3 (0.0-0.5); Eosinophils % (Auto) 2 % (0-10); Hematocrit 28.7 % (36.0-46.0); Hemoglobin 9.4 g/dL (12.0-16.0); Immature Granulocytes % (Auto) 0 % (0-0); Immature Granulocytes Auto 0.03 Thou/mm3 (0.00-0.00); Lymphocytes # (Auto) 2.1 Thou/mm3 (1.0-4.8); Lymphocytes % (Auto) 23 % (10-50); Mean Corpuscular HGB Conc 32.8 g/dl (31.0-37.0); Mean Corpuscular Hemoglobin 29.7 pg (25.0-35.0); Mean Corpuscular Volume 91 fL (80-100); Monocytes # (Auto) 0.4 Thou/mm3 (0.0-0.8); Monocytes % (Auto) 5 % (0-12); Neutrophils # (Auto) 6.4 Thou/mm3 (1.8-7.7); Neutrophils % (Auto) 70 % (37-80); Nucleated Red Blood Cell % 0 /100 WBC (0); Platelet Count 208 Thou/mm3 (140-440); RDW Standard Deviation 44.9 fL (36.4-46.3); Red Blood Count 3.16 Miln/mm3 (4.00-5.20); White Blood Count 9.1 Thou/mm3 (3.6-11.0)
--- NOTE | 2024-06-24 07:28 | PD.LDPPPRG ---
Subjective Subjective Interval history: Delivery type: Patient doing well this morning. No acute complaints. Ambulating, tolerating p.o. and voiding without difficulty. HTN/Pre-Eclampsia screen: No chest pain, shortness of breath, headache, visual changes, epigastric or right upper quadrant pain. Breast-feeding, lochia diminishing. Bowel: Flatus+/ BM+ Exam Vital Signs Temp Pulse Resp BP Pulse Ox O2 Del Method 97.8 F 88 20 126/75 96 Room Air 06/24/24 05:00 06/24/24 05:00 06/24/24 05:00 06/24/24 05:00 06/24/24 05:00 06/24/24 05:00 Constitutional Constitutional: no acute distress Routine HEENT Exam Head: Present normocephalic and atraumatic Eye: Present EOMI and PERRL ENT: Present mucous membranes moist Routine Neck Exam Neck: Present supple and trachea midline Routine Respiratory Exam Respiratory: Present chest non-tender, lungs clear, normal breath sounds and no resp distress Routine Cardiovascular Exam Cardiovascular: Present RRR Routine Abdominal Exam Abdominal: Present soft and normoactive bowel sounds Routine Extremities Exam Extremities: Present full ROM Routine Skin Exam Skin: Present intact, dry and warm Routine Neurological Exam Neurological: Present alert, oriented X3 and CN II-XII intact Routine Psychiatric Exam Psychiatric: Present normal affect and normal thought process Objective Labs 06/24/24 05:16 06/22/24 12:31 Labs: Laboratory Results - last 24 hr 06/24/24 05:16 WBC 9.1 RBC 3.16 L Hgb 9.4 L Hct 28.7 L MCV 91 MCH 29.7 MCHC 32.8 RDW Std Deviation 44.9 Plt Count 208 Neut % (Auto) 70 Lymph % (Auto) 23 [place] % (Auto) 5 Eos % (Auto) 2 Baso % (Auto) 0 Neut # (Auto) 6.4 Lymph # (Auto) 2.1 [place] # (Auto) 0.4 Eos # (Auto) 0.2 Baso # (Auto) 0.0 Immature Gran # (Auto) 0.03 H Absolute Nucleated RBC 0.00 Immature Gran % 0 Nucleated RBC % 0 Assessment & Plan Problem List (1) Hypothyroidism affecting : Problem details: Continue thyroid replacement Status: Acute (2) Maternal care for low transverse scar from previous delivery: Status: Acute Assessment and plan: PPD/POD#2 1. Continue routine care 2. Transition to PO meds. 3. Encourage to ambulate/ breast-feed 4. Anticipate discharge home today. (3) Chronic hypertension affecting : Problem details: Hold labetalol as patient is dizzy Status: Acute (4) Type 2 diabetes mellitus affecting in third trimester, antepartum: Problem details: Hold metformin as patient is dizzy Status: Acute (5) Supervision of high risk , unspecified, third trimester: Status: Acute (6) delivery delivered: Status: Acute Time Spent With Patient Time: Total time spent is greater than 50% in coordination of care (as documented) at patient's floor/unit and/or counseling patient:
--- NOTE | 2024-06-24 07:29 | PD.LDDS ---
DS: Providers Provider Date of admission: 06/22/24 10:09 Primary care physician: Adrianna Wallace PA-C Admitting Provider: Jorge Caceres MD Attending Provider on Admission: Jorge Caceres MD Consults: 06/23/24 06:58 Referral Routine Comment: Attending Provider on DC: Jorge Caceres MD Discharging Provider: Jorge Caceres MD DS: Diagnosis Discharge Diagnosis (1) Hypothyroidism affecting : Status: Acute (2) Maternal care for low transverse scar from previous delivery: Status: Acute (3) Chronic hypertension affecting : Status: Acute (4) Type 2 diabetes mellitus affecting in third trimester, antepartum: Status: Acute Problem List Completed Was Problem List Reviewed/Reconciled?: Yes Summary/Hosp Course Brief History: 33yo @ 38w0d presents for her scheduled delivery . Patient initially presented for transfer of care from an outside facility. LMP 09-29-2023, [facility]ABETH 07-06-2024 based on 10w6d ultrasound on 12-15-2023. History includes advanced maternal age, hypertension, and hypothyroidism. Currently on metformin, labetalol, Crum Lynne Thyroid, vitamins, and pantoprazole. Allergic to diphenhydramine. History of 2 C-sections in 2009 and 2013. Patient reports pressure and pain in legs, as well as visual symptoms. Monitoring for preeclampsia due to symptoms. scheduled for June 22 due to high blood pressure. FHR normal at 145 bpm. Patient is checking blood sugars at home but awaiting lancets from pharmacy. From her records: - Ultrasound (12-15-2023): 10-week 6-day ultrasound estimated the due date as 07-04-2024 - Panel (12-02-2023): Blood group O-positive, antibody screen negative, rubella immune, RPR non-reactive, hepatitis B-negative, HIV-negative - TSH (12-02-2023): 0.71 - Gonorrhea and chlamydia (12-02-2023): Negative - Glucose Tolerance Test (12-02-2023): One-hour result was 141 - Hemoglobin A1C (12-02-2023): 6.6 - Cystic fibrosis screen (12-02-2023): Negative Peripartum Data Procedures: Procedures Operation Date: 06/22/24 12:45 Actual Procedure Side Surgeon p in OB Not Applicable Jorge Caceres MD Time Spent with Patient Time attestation: Total time spent providing and/or coordinating discharge services: Exam Vital Signs Temp Pulse Resp BP Pulse Ox O2 Del Method 97.8 F 88 20 126/75 96 Room Air 06/24/24 05:00 06/24/24 05:00 06/24/24 05:00 06/24/24 05:00 06/24/24 05:00 06/24/24 05:00 Discharge Plan Plan Patient Disposition: HOME (Self Care) Patient condition on transfer: Stable Prescriptions/Referrals Prescriptions/Med Rec: New hydrocodone-acetaminophen 5-325 mg tablet 1 tab PO Q6H MDD 4 PRN (Reason: pain) 5 Days Qty: 20 0RF ibuprofen 600 mg tablet 600 mg PO Q6H PRN (Reason: fever or pain) 10 Days Qty: 40 0RF docusate sodium [Stool Softener] 100 mg capsule 100 mg PO QDAY 30 Days Qty: 30 0RF Continued (DME) blood-glucose meter Kit See Rx Instructions .Route Qty: 1 0RF Rx Instructions: As directed (DME) lancets 26 gauge misc See Rx Instructions .Route Qty: 100 2RF Rx Instructions: As directed metformin 500 mg tablet 500 mg PO BIDWMEAL 30 Days Qty: 60 2RF labetalol 200 mg tablet 200 mg PO BID 30 Days Qty: 60 2RF thyroid (pork) [Crum Lynne Thyroid] 90 mg tablet 90 mg PO QDAY 90 Days Qty: 90 4RF thyroid (pork) [Crum Lynne Thyroid] 15 mg tablet 15 mg PO QDAY 90 Days Qty: 90 4RF Discontinued (DME) Blood Glucose Test Strip See Rx Instructions .Route Qty: 120 2RF Rx Instructions: As directed Referrals: Adrianna Wallace PA-C [Primary Care Provider] - Jorge Caceres MD [Physician] - Patient/Caregiver Discharge Instructions Meds to Beds: Yes Discharge Activity: activity as tolerated Education Materials: Common Thyroid Problems, After Delivery Concerns, Breast Care After , After a , : Caring for Yourself, C Section Dc, Feel Healthy After, Gestational Hypertension Print Language: Romanian Stand Alone Forms: [facility] Award Info., Patient Portal Info Letter Planned Discharge Date 06/24/24
[2024-06-24 08:00] VITALS: BP 119/66; PULSE 86; RESP 18; TEMP 36.7; O2SAT 97
[2024-06-24] MEDS: ENOXAPARIN SOD INJ 40 MG/0.4 ML SYRINGE SC (08:15)
[2024-06-24] MEDS: DOCUSATE SOD 100 MG CAPSULE PO (08:16)
[2024-06-24] MEDS: metFORMIN 500 MG TABLET PO (08:16)
[2024-06-24] MEDS: ACETAMINOPHEN 325 MG TABLET 650 MG PO (08:16)
== END 2024-06-24 10:20 | disposition home or self-care (01) | DRG 786 ==
LOC: S4SX 10:13 → S4NX 12:44
PROVIDERS: Admitting Provider Obstetrics & Gynecology; PCP Physician Assistant; Visit Provider Obstetrics & Gynecology
PROC: 10D00Z1 Extraction of Products of Conception, Low, Open Approach (ICD-10-PCS; CPT 59514; principal; 2024-06-22 12:30)
DX: O34.211 Maternal care for low transverse scar from previous cesarean delivery (principal); O24.12 Pre-existing type 2 diabetes mellitus, in childbirth; Z37.0 Single live birth; Z3A.38 38 weeks gestation of pregnancy; O16.4 Unspecified maternal hypertension, complicating childbirth; E03.9 Hypothyroidism, unspecified; O99.284 Endocrine, nutritional and metabolic diseases complicating childbirth; O69.81X0 Labor and delivery complicated by cord around neck, without compression, not applicable or unspecified; O90.89 Other complications of the puerperium, not elsewhere classified; R51.9 Headache, unspecified; Z79.4 Long term (current) use of insulin; Z79.899 Other long term (current) drug therapy
CPT/HCPCS: 36415; 80053; 83036; 83615; 84550; 85025; 85384; 85610; 85730; 86780; 86850; 86900; 86901; 86923; A4649; J0131; J1100; J1650; J1885; J2274; J2405; J2590; J3010; J3490; J7120; A9270; J2270

== ENCOUNTER 2024-06-25 16:09 | Emergency (ER) | payer OTHER, SELFPAY ==
[2024-06-25] VITALS (8 sets, daily range): BP systolic 139–162; BP diastolic 78–102; PULSE 68–774; RESP 16–19; TEMP 36.5–36.9; O2SAT 98–100; BMI 38.0
--- NOTE | 2024-06-25 16:30 | PD.EDRME ---
Rapid Medical Screening Exam RME Arrival date/time: 06/25/24 16:09 38-year-old female presents to the ER today stating that she had on reports she has headache and neck pain at this time. Chief Complaint: Headache Time Seen by Provider: 06/25/24 16:14 Vital signs: Vital Signs Temperature 98.3 F 06/25/24 16:24 Pulse Rate 80 06/25/24 16:24 Respiratory Rate 18 06/25/24 16:24 Blood Pressure 144/86 H 06/25/24 16:24 Pulse Oximetry (%) 99 06/25/24 16:24 Oxygen Delivery Method Room Air 06/25/24 16:24
--- NOTE | 2024-06-25 16:31 | XR_ITS ---
Examination: CT brain head without contrast. 2-D sagittal coronal reconstructions Date and time of exam:June 25, 2024 1650 hours INDICATIONS: Severe headache today CTDI: vol (mGy):29.1 DLP: (mGycm):941 Technique: Multiple CT axial sections of the brain have been obtained, 5 mm slice thickness. Contrast has not been administered. 2-D sagittal, coronal reconstructions have been obtained Low dose protocols were performed. One or more of the following dose reduction techniques were used; automated exposure control, adjustment of the mA and/or KV according to patient size, use of iterative reconstruction technique. Findings: No significant ventricular enlargement. Intra-axial or extra-axial hemorrhage density is not seen. No mass effect or midline shift Basal cisterns are not remarkable. Fourth ventricle is midline. Cranial vault intact. Impression: Negative for acute hemorrhage, mass effect or midline shift
[2024-06-25 16:51] LABS: Basophils % (Auto) 0 % (0-2.5); Eosinophils # (Auto) 0.3 Thou/mm3 (0.0-0.5); Eosinophils % (Auto) 5 % (0-10); Hematocrit 29.6 % (36.0-46.0); Immature Granulocytes % (Auto) 0 % (0-0); Immature Granulocytes Auto 0.03 Thou/mm3 (0.00-0.00); Lymphocytes # (Auto) 1.5 Thou/mm3 (1.0-4.8); Lymphocytes % (Auto) 21 % (10-50); Mean Corpuscular HGB Conc 33.8 g/dl (31.0-37.0); Mean Corpuscular Volume 89 fL (80-100); Monocytes # (Auto) 0.3 Thou/mm3 (0.0-0.8); Monocytes % (Auto) 5 % (0-12); Neutrophils # (Auto) 4.7 Thou/mm3 (1.8-7.7); Neutrophils % (Auto) 69 % (37-80); Nucleated Red Blood Cell % 0 /100 WBC (0); Platelet Count 232 Thou/mm3 (140-440); RDW Standard Deviation 44.5 fL (36.4-46.3); Red Blood Count 3.33 Miln/mm3 (4.00-5.20); White Blood Count 6.9 Thou/mm3 (3.6-11.0)
[2024-06-25 17:07] LABS: INR 0.9 (0.9-1.3); Partial Thromboplastin Time 26.4 Seconds (22.0-36.0); Prothrombin Time 10.4 Seconds (9.0-12.2)
[2024-06-25 17:20] LABS: Alanine Aminotransferase 148 U/L (10-49); Albumin, Serum 3.5 gm/dL (3.5-5.0); Albumin/Globulin Ratio 1.4 (1.2-2.2); Alkaline Phosphatase 141 U/L (46-116); Anion Gap 9 (7-16); Aspartate Amino Transferase 249 U/L (0-34); BUN/Creatinine Ratio 16 Ratio (12-20); Bilirubin,Total 0.4 mg/dL (0.3-1.2); Blood Urea Nitrogen 11 mg/dL (9-23); Calcium 8.9 mg/dL (8.3-10.6); Calcium (Corrected) 9.3 mg/dL (8.5-10.1); Carbon Dioxide 23.7 mMol/L (20.0-31.0); Chloride 106 mMol/L (98-107); Creatinine (Component) 0.7 mg/dL (0.6-1.3); Estimated Creatinine Clearance 118.8 mL/min (>60); Globulin 2.5 gm/dL (2.3-3.5); Glucose 119 mg/dL (74-106); Osmolality,Calculated 277 (275-295); Potassium 3.8 mMol/L (3.4-5.1); Sodium 139 mMol/L (136-145); eGFR > 60 See Note
--- NOTE | 2024-06-25 17:23 | EDNOTE_ITS ---
<Statement entered by Karen Sanderson MD - 07/03/24 06:25> As co-signing physician, I was present and available for consult prn. I concur with the plan and care as documented by the midlevel provider. ED General RME/HPI General Chief complaint: Headache Stated complaint: HEADACHE, PRESSURE FRONT AND BACK X 1 DAY Time Seen by Provider: 06/25/24 16:14 Arrival date/time: 06/25/24 16:09 CC: Headache HPI headache onset at 7 AM this morning 610 scale frontal top of the head. Not relieved with ibuprofen. Patient is 3 days post also stating some neck tenderness denies fever nausea vomiting is currently breast- feeding RME / HPI RME / HPI narrative: 06/25/24 16:09 38-year-old female presents to the ER today stating that she had on reports she has headache and neck pain at this time. Related Data Previous Rx's ?Medication ?Instructions ?Recorded blood-glucose meter #1 ea 05/24/24 labetalol 200 mg tablet 200 mg PO BID 30 days #60 ta bs 05/24/24 lancets 26 gauge #100 ea 05/24/24 metformin 500 mg tablet 500 mg PO BIDWMEAL 30 days # 60 tabs 05/24/24 thyroid (pork) 15 mg tablet 15 mg PO QDAY 90 days #90 tabs 06/09/24 ([place] Thyroid) thyroid (pork) 90 mg tablet 90 mg PO QDAY 90 days #90 tabs 06/09/24 ([place] Thyroid) docusate sodium 100 mg capsule 100 mg PO QDAY 30 days #30 caps 06/22/24 (Stool Softener) ibuprofen 600 mg tablet 600 mg PO Q6H PRN fever or p ain 10 06/22/24 days #40 tabs Allergies Allergy/AdvReac Type Severity Reaction Status Date / Time No Known Allergies Allergy Verified 06/22/24 11:01 Review of Systems Review of Systems Narrative Review of Systems: GEN: No fever, no chills, no weight loss EYES: No discharge, no visual changes, no pain HEENT: No ear pain, no congestion, no sore throat PULM: No shortness of breath, no cough, no congestion CV: No chest pain, no dyspnea on exertion, no palpitations GI: No nausea, no vomiting, no diarrhea, no pain, no constipation : No frequency, no urgency, no dysuria MUSC/SKEL: No joint pain, no back pain SKIN: No rash PSYCH: No hallucinations, no depression HEME/LYMPH: No easy bleeding or bruising tendencies NEURO: + weakness, no headache Past Medical History Past Medical History NEUROLOGIC: Negative Neurological Disorders, Cerebrovascular Accident, Transient Ischemic Attacks (TIA), Dementia, Alzheimer's Disease, Parkinson's Disease, Brain Tumor, Meningitis, Seizures, Epilepsy, Multiple Sclerosis, Cerebral Palsy, Amyotrophic Lateral Sclerosis (ALS/Margarette Gehrig's), Guillain-[place] Syndrome, Spina Bifida, Paralysis, Peripheral Neuropathy, David's Palsy, Subdural Hematoma, Migraine, Head Trauma, Spinal Cord Injury or Traumatic Brain Injury CARDIAC: Positive Cardiac Disorders and Hypertension (TAKES MED); Negative Myocardial Infarction, Cardiac Arrhythmia, Atrial Fibrillation, Angina, Heart Murmur, Coronary Artery Disease, Atherosclerotic Heart Disease, Peripheral Vascular Disease, Hypercholesterolemia, Aneurysm, Congestive Heart Failure, Congenital Heart Disease, Valvular Heart Disease, Rheumatic Fever, Cardiomyopathy, Edema, Pericarditis, Cellulitis or Varicose Veins RESPIRATORY: Positive Tuberculosis (2019 NO MED POSITIVE TEST); Negative Chronic Obstructive Pulmonary Disease (COPD), Asthma, Bronchitis, Emphysema, Pneumonia, Pulmonary Fibrosis, Pulmonary Embolism, Pulmonary Edema, Sleep Apnea, CPAP Dependent, Respiratory Aspiration, Dyspnea, Orthopnea, Cough, Sputum Production, Wheezing, Chest Deformities, Smoking, Smoking Cessation Counseling, Smoking Exposure, Tobacco Use, Clubbing, Exposure to Respiratory Irritants or Intubation GASTROINTESTINAL: Positive Gastrointestinal Disorders, Gall Bladder Disease (LAP 2003), Gastroesophageal Reflux Disease (OTC) and Obesity; Negative Liver Cancer, Hepatitis, Cirrhosis, Pancreatic Cancer, Pancreatitis, Celiac Disease, Gastrointestinal Bleed, Esophageal Varices, Chapa's Esophagus, Colitis, Ulcerative Colitis, Diverticulitis, Diverticulosis, Ulcer, Colorectal Cancer, Irritable Bowel, Crohn's Disease, Obstructive Bowel, Hiatal Hernia or Hemorrhoids GENITOURINARY: Positive Genitourinary Disorders (recurrent uti) and Kidney Stones (NO SURG); Negative Renal Disease, Polycystic Kidney Disease, Neurogenic Bladder, Inguinal Hernia, Dialysis, Prostate Cancer or Benign Prostatic Hyperplasia REPRODUCTIVE: Positive Previous Pregnancies (X4); Negative Breast Cancer, Endometriosis, Fibroids, Genital Herpes, Gonorrhea, Pelvic Inflammatory Disease, Hx Polycystic Ovarian Syndrome or Syphilis MUSCULOSKELETAL: Positive Musculoskeletal Disorders and Degenerative Disk Disease; Negative Muscular Dystrophy, Myasthenia Gravis, Marfan's Syndrome, Bone Cancer, Arthritis, Rheumatoid Arthritis, Osteoporosis, Gout, Scoliosis, Carpal Tunnel Syndrome, Fibromyalgia, Fractures, Degenerative Joint Disease, Osteomyelitis or Poliovirus ENT: Negative Cataracts, Glaucoma, Blind, Retinal Detachment, Macular Degeneration, Ear Infection, Deafness, Head Trauma or Eye Prosthesis ENDOCRINE: Positive Endocrine Disorders (PRE DIABETES NO MED), Diabetes Mellitus Type 2 and Hypothyroidism (TAKES MED); Negative Diabetes Mellitus Type 1, Hypoglycemia, [place]'s Syndrome, Thibodaux's Disease, Hyperthyroidism, Thyroid Cancer, Parathyroid Disease, Pituitary Disease, Systemic Lupus Erythematosus, Syndrome of Inappropriate Antidiuretic Hormone (SIADH), Adrenal Disease or Graves' Disease HEMATOLOGIC: Negative Blood Disorders, Anemia, Leukemia, Hemophilia, Thalassemia, Sickle Cell Disease or Clotting Problems PSYCHO/SOCIAL: Negative Schizophrenia, Recreational Drug Use, Bipolar Disorder, Depression, Anxiety, Behavior Problems, Self-Mutilation, Attention Deficit Disorder, Attention Deficit Hyperactivity Disorder, Depression, Post Traumatic Stress Disorder or Eating Disorder OTHER HISTORY: Positive Anesthesia Reactions (Nausea), Chicken Pox and Measles; Negative Hospitalization, Autoimmune Disease, Down Syndrome, Autism, Developmental Delay, Cosmetic Surgery, Shingles, Falls, Blood Transfusions, Blood Transfusion Reaction, Organ Transplant, Chemotherapy, Radiation Therapy, Hyperbaric Therapy, MRSA, VRSA, Vancomycin-Resistant Enterococci, Human Immunodeficiency Virus (HIV), Mumps, Rubella (Ivorian Measles), Pertussis, Hx Klebsiella Pneumoniae Carbapenemase (KPC)-Producing Bacteria, Clostridium Difficile, Hepatitis A, Hepatitis B, Hepatitis C, Communicable Disease, Cancer, Breast Cancer, Cervical Cancer, Colorectal Cancer, Lung Cancer, Ovarian Cancer or Prostate Cancer Family History FAMILY HISTORY: Positive Family Cardiac Disorders (FATHER,MOTHER (htn)) and Family Surgery (MOTHER); Negative Family Psychiatric Problems, Family Respiratory Disorders, Family Gastrointestinal Problems, Family Cancer or Family Anesthesia Reaction Surgical History SURGICAL: Positive Abdominal Surgery and Section; Negative Cardiac Surgery, Pacemaker, Carotid Endarterectomy or Organ Transplant Social History SMOKING STATUS: Never smoker SECOND HAND EXPOSURE: No SUBSTANCE USE: unknown ED Exam Narrative Physical exam: [General: Obese not in cot no acute distress Head normocephalic HEENT: Within acceptable limits Neck is supple nontender Chest equal chest rise nontender to palpation Respiratory: Clear to auscultation no wheezes crackles or rubs CV: Rate rhythm is regular no murmurs rubs or clicks Abdomen is distended secondary to body habitus soft nontender no masses positive bowel sounds all 4 quadrants Back: No CVA tenderness no spinous process tenderness from cervical spine thoracic and lumbar spine Skin: surgical site clean dry and intact. Otherwise skin is intact no petechiae rash induration ulceration or crepitus Extremities: Moving all extremity against resistance cap refill less than 2 seconds neurosensory intact Neuro: Awake alert oriented x3 Glascow coma 15 no focal deficits] Course Course Course Narrative: Patient's headache is unchanged with positioning of the head left right flexion and extension. Patient's case clinical presentation clinical evaluation and laboratory results were presented to Dr. Grady, anesthesiologist, who states he actually did the epidural for this patient states that the patient is immediately complaining of dizziness and mild headache in the middle of the procedure and had headaches postprocedure. He comments that the patient's headache was constant not positional which would be typical of a headache related to CSF leak. Patient's case clinical presentation laboratory results clinical findings were discussed with Dr. Patel, who supplied me with a good post LP cocktail regimen for headaches. We will attempt this. If there is no relief then we will call anesthesia back for a blood patch. Reassessment of the patient at 2158, the patient is now headache free. Once we establish blood pressure is down we will discharge the patient home. At 2215 the patient is 155/85. Quality Measures none Orders Category Date Time Status Saline [Insert IV] NOW Care 06/25/24 17:[address] head/brain wo con Stat Exams 06/25/24 16:31 Completed CBC Stat Lab 06/25/24 10:44 Completed Comprehensive Metabolic Panel Stat Lab 06/25/24 10:44 Completed Partial Thromboplastin Time Stat Lab 06/25/24 10:44 Completed Prothrombin Time with INR Stat Lab 06/25/24 10:44 Completed Urinalysis Stat Lab 06/25/24 22:32 Completed Cosyntropin Inj [Cortrosyn Inj] Med 06/25/24 20:00 Discontinued 1 mg IVP X1 ONE Dexamethasone Inj [Decadron Inj] Med 06/25/24 18:57 Discontinued 10 mg IV X1 ONE DiphenhydrAMINE INJ [Benadryl Inj] Med 06/25/24 18:57 Discontinued 25 mg IVP X1 ONE Ketorolac Inj [Toradol Inj] Med 06/25/24 18:57 Discontinued 30 mg IVP X1 ONE Labetalol IV [Trandate IV] Med 06/25/24 18:12 Discontinued 10 mg IVP X1 ONE SUMAtriptan INJ [Imitrex Inj] Med 06/25/24 20:47 Discontinued 6 mg SC X1 ONE Sodium Chloride 0.9% 1000 ml [Ns] 1,000 ml Med 06/25/24 18:57 Discontinued IV 999 mls/hr Vital Signs Vital signs: Vital Signs Temperature 98.3 F 06/25/24 16:24 Pulse Rate 80 06/25/24 16:24 Respiratory Rate 18 06/25/24 16:24 Blood Pressure 144/86 H 06/25/24 16:24 Pulse Oximetry (%) 99 06/25/24 16:24 Oxygen Delivery Method Room Air 06/25/24 16:24 [facility] Patient data External records reviewed:: [facility] previous records Clinical information provided by:: patient and spouse Social determinants that could affect healthcare access:: none Patient has the following chronic illnesses:: Hypertension diabetes hyperlipidemia How is presenting disease/condition affected by chronic disease/condition?: e xacerbated by Evaluation data The following diagnostics were reviewed and interpreted by me:: lab results Lab and/or radiology exams considered but not ordered:: CBC shows no acute leukocytosis and mild anemia of 10 and 26 no thrombocytopenia Coags within acceptable limits CMP shows no significant electrolyte imbalances. Transaminases were mildly elevated with an AST of 249 ALT of 148 and alk phos of [address] head is negative as interpreted by me read by radiology. Urine is 1+ blood but no proteinuria. Interpretation Summary: Patient at 2223 is completely headache free, and comfortable discharging this patient home. Patient is advised to pump and dump for the next 24 hours secondary medication given for the headache. Medications Medications considered but not ordered:: None Medication administrations:: Medication Administration History Discontinued Medications Cosyntropin (Cosyntropin Inj 0.25 Mg Vial) 1 mg IVP X1 ONE Stop: 06/25/24 20:01 Last Admin: 06/25/24 20:42 Dose: 1 mg Documented By: DALTON Dexamethasone Sodium Phosphate (Dexamethasone Sod Phos Inj 10 Mg/Ml Vial) 10 mg IV X1 ONE Stop: 06/25/24 18:58 Last Admin: 06/25/24 20:37 Dose: 10 mg Documented By: DALTON Diphenhydramine HCl (Diphenhydramine Inj 50 Mg/Ml Vial) 25 mg IVP X1 ONE Stop: 06/25/24 18:58 Last Admin: 06/25/24 20:32 Dose: 25 mg Documented By: DALTON Sodium Chloride (Ns) 1,000 mls @ 999 mls/hr IV .Q1H1M ONE Stop: 06/25/24 19:57 Last Infusion: 06/25/24 21:35 Dose: Infused Documented By: Admin: 06/25/24 20:32 Dose: 999 mls/hr Documented By: DALTON Ketorolac Tromethamine (Ketorolac Inj 30 Mg/Ml Vial) 30 mg IVP X1 ONE Stop: 06/25/24 18:58 Last Admin: 06/25/24 20:35 Dose: 30 mg Documented By: DALTON Labetalol HCl (Labetalol Inj 5 Mg/Ml Vial 20 Ml) 10 mg IVP X1 ONE Stop: 06/25/24 18:13 Last Admin: 06/25/24 18:21 Dose: Not Given Documented By: MYLES Non-Admin Reason: Change of Condition Sumatriptan Succinate (Sumatriptan Inj 6 Mg/0.5 Ml Vial) 6 mg SC X1 ONE Stop: 06/25/24 20:48 Last Admin: 06/25/24 21:21 Dose: 6 mg Documented By: DALTON None Consultations Consultation(s) initiated? (list below): No Diagnosis Differential Diagnosis ED Complaint MDM: Preeclampsia, epidural headache, migraine Most likely diagnosis given after review of the tests above:: Headache Admission Indicated Admission indicated?: not indicated Explain why admission is indicated or not indicated:: Stable for outpatient follow-up Admission Request Was there a request for admission?: No Disposition Plan Disposition Plan: Discharge Discharge Attestation Discharge Attestation: The patient and all family members were given an opportunity to ask questions and understood the discharge instructions. Discharge instructions specifically effects, indications for sooner follow up or return to the emergency department, and the expected course of current diagnosis. Patient condition: Stable Medical Decision Making Differential Diagnosis Differential Diagnosis: Preeclampsia, epidural headache, migraine Lab Data 06/25/24 10:44 06/25/24 10:44 Labs: Lab Results 06/25/24 06/25/24 Range/Units 10:44 22:32 WBC 6.9 (3.6-11.0) Thou/mm3 RBC 3.33 L (4.00-5.20) Miln/mm3 Hgb 10.0 L (12.0-16.0) g/dL Hct 29.6 L (36.0-46.0) % MCV 89 (80-100) fL MCH 30.0 (25.0-35.0) pg MCHC 33.8 (31.0-37.0) g/dl RDW Std Deviation 44.5 (36.4-46.3) fL Plt Count 232 (140-440) Thou/mm3 Neut % (Auto) 69 (37-80) % Lymph % (Auto) 21 (10-50) % Branch % (Auto) 5 (0-12) % Eos % (Auto) 5 (0-10) % Baso % (Auto) 0 (0-2.5) % Neut # (Auto) 4.7 (1.8-7.7) Thou/mm3 Lymph # (Auto) 1.5 (1.0-4.8) Thou/mm3 Branch # (Auto) 0.3 (0.0-0.8) Thou/mm3 Eos # (Auto) 0.3 (0.0-0.5) Thou/mm3 Baso # (Auto) 0.0 (0.0-0.2) Thou/mm3 Immature Gran # (Auto) 0.03 H (0.00-0.00) Thou/mm3 Absolute Nucleated RBC 0.00 (0.00-0.00) Thou/mm3 Immature Gran % 0 (0-0) % Nucleated RBC % 0 (0) /100 WBC PT 10.4 (9.0-12.2) Seconds INR 0.9 (0.9-1.3) APTT 26.4 (22.0-36.0) Seconds Sodium 139 (136-145) mMol/L Potassium 3.8 (3.4-5.1) mMol/L Chloride 106 (98-107) mMol/L Carbon Dioxide 23.7 (20.0-31.0) mMol/L Anion Gap 9 (7-16) BUN 11 (9-23) mg/dL Creatinine 0.7 (0.6-1.3) mg/dL Estim Creat Clear Calc 118.8 (>60) mL/min eGFR > 60 (60 - ) See Note BUN/Creatinine Ratio 16 (12-20) Ratio Glucose 119 H (74-106) mg/dL Calculated Osmolality 277 (275-295) Calcium 8.9 (8.3-10.6) mg/dL Corrected Calcium 9.3 (8.5-10.1) mg/dL Total Bilirubin 0.4 (0.3-1.2) mg/dL AST 249 H (0-34) U/L ALT 148 H (10-49) U/L Alkaline Phosphatase 141 H D (46-116) U/L Total Protein 6.0 (5.7-8.2) gm/dL Albumin 3.5 (3.5-5.0) gm/dL Globulin 2.5 (2.3-3.5) gm/dL Albumin/Globulin Ratio 1.4 (1.2-2.2) Ur Collection Type Clean Catch Urine Color Colorless A (Lt Yel-Yel) Urine Clarity Clear (Clear/Hazy) Urine pH 7.0 (5.0-7.0) Ur Specific [place] 1.010 (1.001-1.035) Urine Protein Negative (Neg - Trace) Urine Glucose (UA) Negative (Negative) Urine Ketones Negative (Negative) Urine Blood 1+ A (Negative) Urine Nitrite Negative (Negative) Urine Bilirubin Negative (Negative) Urine Urobilinogen (Auto) Negative (0.0-1.0) mg/dL Ur Leukocyte Esterase Negative (Negative) Urine RBC 1 (0-3) /hpf Urine WBC 1 (0-5) /hpf Ur Squamous Epith Cells 1 (0-5) /hpf Urine Bacteria None (None) Discharge Plan Plan Patient Disposition: HOME (Self Care) Patient condition on transfer: Stable Prescriptions/Referrals Prescriptions/Med Rec: No Action (DME) blood-glucose meter Kit See Rx Instructions .Route Qty: 1 0RF Rx Instructions: As directed (DME) lancets 26 gauge misc See Rx Instructions .Route Qty: 100 2RF Rx Instructions: As directed metformin 500 mg tablet 500 mg PO BIDWMEAL 30 Days Qty: 60 2RF labetalol 200 mg tablet 200 mg PO BID 30 Days Qty: 60 2RF thyroid (pork) [[place] Thyroid] 90 mg tablet 90 mg PO QDAY 90 Days Qty: 90 4RF thyroid (pork) [[place] Thyroid] 15 mg tablet 15 mg PO QDAY 90 Days Qty: 90 4RF ibuprofen 600 mg tablet 600 mg PO Q6H PRN (Reason: fever or pain) 10 Days Qty: 40 0RF docusate sodium [Stool Softener] 100 mg capsule 100 mg PO QDAY 30 Days Qty: 30 0RF Referrals: Adrianna Wallace PA-C [Primary Care Provider] - In 1 week Problem List Clinical Impression: Headache Impression comment: headache Patient/Caregiver Discharge Instructions Other Activity Instructions:: Please pump and dump for the next 24 hours because of the medication given to you for your headache. After that you can continue to breast-feed if you choose to. Follow-up with your primary care provider if your pressure stay high please follow-up immediately with your EXCHANGE OPERATOR for further evaluation. Education Materials: Self-Care for Headaches Print Language: Greek Stand Alone Forms: [employer] Award Info., Work/School Release, Patient Portal Info Letter LIN/ANTONY Supervising Physician LIN/ANTONY Supervising Physician: Berto Donovan ENP
--- NOTE | 2024-06-25 19:28 | PC.NURSE ---
medication cortrosyn not available in [facility]. called pharmacy, awaiting pharmacy to bring medication.
[2024-06-25] MEDS: SODIUM CHLORIDE 0.9% 1000 ML 1,000 ML 999 ML IV (20:32)
[2024-06-25] MEDS: DiphenhydrAMINE INJ 50 MG/ML VIAL 25 MG IVP (20:32)
[2024-06-25] MEDS: KETOROLAC INJ 30 MG/ML VIAL IVP (20:35)
[2024-06-25] MEDS: DEXAMETHASONE SOD PHOS INJ 10 MG/ML VIAL IV (20:37)
[2024-06-25] MEDS: COSYNTROPIN INJ 0.25 MG VIAL 1 MG IVP (20:42)
[2024-06-25] MEDS: SUMAtriptan INJ 6 MG/0.5 ML VIAL SC (21:21)
[2024-06-25 22:36] LABS: Collection Type, Urine Clean Catch
[2024-06-25 22:41] LABS: Bilirubin,Urine Negative (Negative); Blood,Urine 1+ (Negative); Clarity,Urine Clear (Clear/Hazy); Color,Urine Colorless (Lt Yel-Yel); Glucose, Urine Negative (Negative); Ketones,Urine Negative (Negative); Leukocyte Esterase,Urine Negative (Negative); Nitrite,Urine Negative (Negative); Protein,Urine Negative (Neg - Trace); RBC,Urine 1 /hpf (0-3); Squamous Epithelial Cell,Urine 1 /hpf (0-5); Urobilinogen,Urine Negative mg/dL (0.0-1.0); WBC,Urine 1 /hpf (0-5)
== END 2024-06-25 23:18 | disposition home or self-care (01) ==
PROVIDERS: Nurse Practitioner Primary Care; Registered Nurse General Practice; Emergency Provider Emergency Medicine; PCP Physician Assistant
DX: O90.89 Other complications of the puerperium, not elsewhere classified (principal); R51.9 Headache, unspecified
CPT/HCPCS: 36415; 70450; 80053; 81001; 85025; 85610; 85730; 96372; 96374; 96375; 99284; J0834; J1100; J1200; J1885; J3030; J7030

== ENCOUNTER 2024-06-29 14:20 | Outpatient (AMB) | payer OTHER, SELFPAY ==
[2024-06-29 14:34] VITALS: BP 139/84; PULSE 80; RESP 18; TEMP 35.7; O2SAT 99
--- NOTE | 2024-06-29 14:34 | GYNCLNT_ITS ---
Vital Signs 06/29/24 14:34 Weight 90.945 kg Weight Measurement Method Standing Scale BP 139/84 H Blood Pressure Source Automatic Cuff Blood Pressure Location Left Upper Arm Position Sitting Respiration 18 Pulse 80 Pulse Source Monitor Temp 96.3 F L Temp Source Oral Pulse Oximetry (%) 99 Oxygen Delivery Method Room Air Allergies/Home Meds Allergies & Medications Allergies No Known Allergies Allergy (Verified 06/29/24 14:35) Medication Reconciliation blood-glucose meter #1 ea 05/24/24 [Rx Confirmed 06/29/24] labetalol 200 mg tablet 200 mg PO BID 30 days #60 tabs 05/24/24 [Rx Confirmed 06/29/24] lancets 26 gauge #100 ea 05/24/24 [Rx Confirmed 06/29/24] metformin 500 mg tablet 500 mg PO BIDWMEAL 30 days #60 tabs 05/24/24 [Rx Confirmed 06/29/24] thyroid (pork) 15 mg tablet ([place] Thyroid) 15 mg PO QDAY 90 days #90 tabs 06/09/24 [Rx Confirmed 06/29/24] thyroid (pork) 90 mg tablet ([place] Thyroid) 90 mg PO QDAY 90 days #90 tabs 06/09/24 [Rx Confirmed 06/29/24] docusate sodium 100 mg capsule (Stool Softener) 100 mg PO QDAY 30 days #30 caps 06/22/24 [Rx Confirmed 06/29/24] Intake Visit Data Collection New Patient or Established: Established Patient (seen at [facility] within 3 years) Reason for Visit:: Seen by Clinical Staff ONLY (RN/MA): No Information Systems Manager Required: Yes Information Systems Manager's name/title: JOB SPENCER/ 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 Do You Feel Safe at Home: Yes Authorities Contacted: N/A PCP or OBGYN visit in last 3 months: Yes Date of Last PCP or OBGYN visit: 06/22/24 Hx Now: No Are you currently on any form of Control: No Pain Present Currently: No Pain Scale Used: Carrero-Schofield/Numerical Pain scale:: 0 Smoking Status Smoking Status: Never smoker Foster Parent history Foster Parent History Menstrual regularity: regular Flow: normal Monthly: Yes Currently sexually active: No Questionnaires Covid-19 Vaccine Questionnaire Has patient been vacinated for Covid-19 Have you been vacinated for Covid-19: Yes PHQ-9 PHQ-2 Over the last 2 weeks, how often have you been bothered by any of the following problems? 1. Little interest or pleasure in doing things: not at all 2. Feeling down, depressed, or hopeless: not at all Total score: 0 PHQ-9 3. Trouble falling or staying asleep, or sleeping too much: Not at all 4. Feeling tired or having little energy: Not at all 5. Poor appetite or overeating: Not at all 6. Feeling bad about yourself - or that you are a failure or have let yourself or your family down: Not at all 7. Trouble concentrating on things, such as reading the newspaper or watching television: Not at all 8. Moving or speaking so slowly that other people could have noticed? - Or the opposite - being so fidgety or restless that you have been moving around a lot more than usual: not at all 9. Thoughts that you would be better off or of hurting yourself in some way: Not at all Total score: 0 If you checked off any problems, how difficult have these problems made it for you to do your work, take care of things at home, or get along with other people?: not difficult at all Source: Developed by Drs. Chandan Miranda, Polly Mobley, Wood Torres and colleagues, with an educational gale from [employer]. Depression screen completed yes Social History Living Situation History Marital Status: Lives With: Family Housing: House Tobacco History Smoking Status: Never smoker Second Hand Smoke Exposure: No Alcohol History Alcohol Intake: Never Substance Use History Substance Use: no Domestic Abuse History Do You Feel Safe at Home: Yes Past Medical History Past Medical History Have you ever been diagnosed with any of the following: Neurological Problems Cerebrovascular Accident (CVA): No Transient Ischemic Attacks (TIA): No Dementia: No Alzheimer's Disease: No Parkinson's Disease: No Brain Tumor: No Meningitis: No Seizures: No Epilepsy: No Multiple Sclerosis: No Cerebral Palsy: No Amyotrophic Lateral Sclerosis (ALS/Margarette Gehrig's): No Guillain-[place] Syndrome: No Spina Bifida: No Paralysis: No Peripheral Neuropathy: No David's Palsy: No Subdural Hematoma: No Migraine: No Head Trauma: No Spinal Cord Injury: No Traumatic Brain Injury: No Cardiology Problems Myocardial Infarction: No Cardiac Arrhythmia: No Atrial Fibrillation: No Angina: No Heart Murmur: No Coronary Artery Disease: No Atherosclerotic Heart Disease: No Peripheral Vascular Disease: No Hypercholesterolemia: No Aneurysm: No Congestive Heart Failure: No Congenital Heart Disease: No Valvular Heart Disease: No Rheumatic Fever: No Cardiomyopathy: No Edema: No Pericarditis: No Cellulitis: No Hypertension: Yes (TAKES MED) Varicose Veins: No Respiratory Problems Chronic Obstructive Pulmonary Disease (COPD): No Asthma: No Bronchitis: No Emphysema: No Pneumonia: No Pulmonary Fibrosis: No Tuberculosis: Yes (2018 NO MED POSITIVE TEST) Pulmonary Embolism: No Pulmonary Edema: No Sleep Apnea: No CPAP Dependent: No Respiratory Aspiration: No Dyspnea: No Orthopnea: No Hx Cough: No Cough: No Wheezing: No Chest Deformities: No Smoking: No Smoking Cessation Counseling: No Smoking Exposure: No Tobacco Use: No Clubbing: No Exposure to Respiratory Irritants: No Intubation: No Stomache/Intestinal Problems Liver Cancer: No Hepatitis: No Cirrhosis: No Pancreatic Cancer: No Pancreatitis: No Celiac Disease: No Gall Bladder Disease: Yes (LAP 2002) Gastrointestinal Bleed: No Esophageal Varices: No Chapa's Esophagus: No Colitis: No Ulcerative Colitis: No Diverticulitis: No Diverticulosis: No Ulcer: No Colorectal Cancer: No Irritable Bowel: No Crohn's Disease: No Obstructive Bowel: No Hiatal Hernia: No Hemorrhoids: No Gastroesophageal Reflux Disease: Yes (OTC) Obesity: Yes Genital/Urinary Problems Renal Disease: No Kidney Stones: Yes (NO SURG) Polycystic Kidney Disease: No Neurogenic Bladder: No Inguinal Hernia: No Dialysis: No Prostate Cancer: No Benign Prostatic Hyperplasia: No Reproductive Problems Breast Cancer: No Endometriosis: No Fibroids: No Genital Herpes: No Gonorrhea: No Pelvic Inflammatory Disease: No Polycystic Ovarian Syndrome: No Previous Pregnancies: Yes (X4) Syphilis: No Musculoskeletal Problems Muscular Dystrophy: No Myasthenia Gravis: No Marfan's Syndrome: No Bone Cancer: No Arthritis: No Rheumatoid Arthritis: No Osteoporosis: No Degenerative Disk Disease: Yes Gout: No Scoliosis: No Carpal Tunnel Syndrome: No Fibromyalgia: No Fractures: No Degenerative Joint Disease: No Osteomyelitis: No Poliovirus: No Head,Eye,Nose,Throat Problems Cataracts: No Glaucoma: No Blind: No Retinal Detachment: No Macular Degeneration: No Chronic Ear Infections: No Deafness: No Eye Prosthesis: No Endocrine Problems Diabetes Mellitus Type 1: No Diabetes Mellitus Type 2: Yes Hypoglycemia: No [place]'s Syndrome: No [place]a's Disease: No Hyperthyroidism: No Hypothyroidism: Yes (TAKES MED) Thyroid Cancer: No Parathyroid Disease: No Pituitary Disease: No Systemic Lupus Erythematosus: No Syndrome of Inappropriate Antidiuretic Hormone: No Adrenal Disease: No Graves' Disease: No Blood Problems Anemia: No Leukemia: No Hemophilia: No Thalassemia: No Sickle Cell Disease: No Clotting Problems: No Psychologic Problems Schizophrenia: No Recreational Drug Use: No Bipolar Disorder: No Depression: No Anxiety: No Behavior Problems: No Self-Mutilation: No Attention Deficit Disorder: No Attention Deficit Hyperactivity Disorder: No Depression: No Post Traumatic Stress Disorder: No Eating Disorder: No Other Problems Hospitalization: No Down Syndrome: No Autism: No Developmental Delay: No Cosmetic Surgery: No Shingles: No Falls: No Blood Transfusions: No Blood Transfusion Reaction: No Anesthesia Reactions: Yes (Nausea) Organ Transplant: No Chemotherapy: No Radiation Therapy: No Hyperbaric Therapy: No MRSA: No VRSA: No Vancomycin-Resistant Enterococci: No Human Immunodeficiency Virus (HIV): No Chicken Pox: Yes Measles: Yes Mumps: No Rubella ([place] Measles): No Pertussis: No Klebsiella Pneumoniae Carbapenemase Producing Bacteria: No Clostridium Difficile: No Hepatitis A: No Hepatitis B: No Hepatitis C: No Communicable Disease: No Cancer: No Cervical Cancer: No Lung Cancer: No Ovarian Cancer: No Surgical History Angioplasty: No Bariatric Surgery: No Breast Surgery: No Cancer Surgery: No Carotid Endarterectomy: No Pacemaker: No History of Present Illness HPI Narrative The patient is a woman who underwent a last . She reports experiencing significant dizziness following the procedure, which she had not experienced with previous C-sections. The patient also developed severe pressure in her head, particularly in one specific area. Due to these symptoms, she sought emergency care on Wednesday. Additionally, the patient mentions ongoing soreness, which is attributed to the difficult nature of her recent due to extensive scar tissue from previous surgeries. Review of Systems Review of Systems Systems Reviewed: All systems reviewed, normal except as documented Exam General Limitations: no limitations General Appearance: alert, in no apparent distress, comfortable, cooperative, healthy appearing, well developed and well groomed Chest Chest inspection: Present normal inspection and symmetric chest wall rise Abdominal Abdominal exam: Present soft and normal bowel sounds Skin Skin exam: Present warm, dry, intact and normal color Assessment & Plan Diagnosis / Problem List (1) Maternal care for low transverse scar from previous delivery: Status: Acute (2) Chronic hypertension affecting : Status: Acute (3) Type 2 diabetes mellitus affecting in third trimester, antepartum: Status: Acute (4) Encounter for surgical aftercare following surgery on the genitourinary system: Status: Acute (5) care following delivery: Status: Acute Plan Patient is status post section performed last . The procedure was noted to be difficult due to significant scar tissue from previous C- sections, which caused adhesions between different tissue layers. The incision site is healing well. Patient experienced dizziness and head pressure postoperatively, likely due to spinal anesthesia effects. These symptoms are consistent with post-dural puncture headache, a known complication of spinal anesthesia where cerebrospinal fluid is drained during the procedure. - Continue daily showering and incision site care - No topical treatments required for incision site - Recommend moderate caffeine intake (coffee or cola) to alleviate headache symptoms - Continue prescribed pain medications as needed - Wear abdominal binder consistently, except while sleeping - Follow-up appointment scheduled in one month Office Procedures OB Clinic LOC & Office Proc's Nursing/Assessment Patient Status: Established Patient OB Clinic Nursing Assessment: BP Monitoring, Medication Reconciliation, Update PMH in EMR and Vital Signs OB Clinic Coordination of Care: Complex Care and Chronic Disease 1-5, Consent,records obtained, informed consent, Education Simp Pt/Fam and Staff clarify orders Established Patient Charge Established Patient Point Assignment: 100 Established Patient Point Charge: EP Level 3 (80-115) Post Follow-up Visit Post Follow up Visit: Yes
== END 2024-06-29 14:45 | disposition home or self-care (01) ==
LOC: HODSOBC 14:20
PROVIDERS: PCP Physician Assistant; Referring Provider Physician Assistant; Supervising Provider Obstetrics & Gynecology; Visit Provider Obstetrics & Gynecology
DX: Z39.2 Encounter for routine postpartum follow-up (principal); O10.93 Unspecified pre-existing hypertension complicating the puerperium; O24.13 Pre-existing type 2 diabetes mellitus, in the puerperium; Z79.84 Long term (current) use of oral hypoglycemic drugs; Z79.899 Other long term (current) drug therapy
CPT/HCPCS: 59430; 99213; G0463

== ENCOUNTER 2024-07-14 09:49 | Outpatient (AMB) | payer OTHER, SELFPAY ==
[2024-07-14 10:03] VITALS: BP 104/70; PULSE 99; RESP 78; TEMP 36.6; O2SAT 99
--- NOTE | 2024-07-14 10:03 | AMB.GYNCLNOT ---
Vital Signs 07/14/24 10:03 Weight 89.584 kg Weight Measurement Method Standing Scale BP 104/70 Blood Pressure Source Automatic Cuff Blood Pressure Location Left Upper Arm Position Sitting Respiration 78 H Pulse 99 Pulse Source Monitor Temp 97.8 F Temp Source Oral Pulse Oximetry (%) 99 Oxygen Delivery Method Room Air Allergies/Home Meds Allergies & Medications Allergies No Known Allergies Allergy (Verified 07/14/24 10:05) Medication Reconciliation blood-glucose meter #1 ea 05/24/24 [Rx Confirmed 07/14/24] labetalol 200 mg tablet 200 mg PO BID 30 days #60 tabs 05/24/24 [Rx Confirmed 07/14/24] lancets 26 gauge #100 ea 05/24/24 [Rx Confirmed 07/14/24] metformin 500 mg tablet 500 mg PO BIDWMEAL 30 days #60 tabs 05/24/24 [Rx Confirmed 07/14/24] thyroid (pork) 15 mg tablet ([place] Thyroid) 15 mg PO QDAY 90 days #90 tabs 06/09/24 [Rx Confirmed 07/14/24] thyroid (pork) 90 mg tablet ([place] Thyroid) 90 mg PO QDAY 90 days #90 tabs 06/09/24 [Rx Confirmed 07/14/24] docusate sodium 100 mg capsule (Stool Softener) 100 mg PO QDAY 30 days #30 caps 06/22/24 [Rx Confirmed 07/14/24] nystatin 100,000 unit/gram topical powder 1 applic topical TID #30 grams 07/14/24 [Rx] Intake Visit Data Collection New Patient or Established: Established Patient (seen at [facility] within 3 years) Reason for Visit:: Redness and pain around CS incision Seen by Clinical Staff ONLY (RN/MA): No Plant Maintenance Manager Required: Yes Plant Maintenance Manager's name/title: JOB SPENCER / NON PROFIT DIRECTOR Do You Feel Safe at Home: Yes Authorities Contacted: N/A PCP or OBGYN visit in last 3 months: Yes Date of Last PCP or OBGYN visit: 05/31/24 Hx Now: No Are you currently on any form of Control: No Pain Present Currently: No Pain Scale Used: Carrero-Schofield/Numerical Pain scale:: 0 Smoking Status Smoking Status: Never smoker 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 1. Little interest or pleasure in doing things: not at all 2. Feeling down, depressed, or hopeless: not at all Total score: 0 PHQ-9 3. Trouble falling or staying asleep, or sleeping too much: Not at all 4. Feeling tired or having little energy: Not at all 5. Poor appetite or overeating: Not at all 6. Feeling bad about yourself - or that you are a failure or have let yourself or your family down: Not at all 7. Trouble concentrating on things, such as reading the newspaper or watching television: Not at all 8. Moving or speaking so slowly that other people could have noticed? - Or the opposite - being so fidgety or restless that you have been moving around a lot more than usual: not at all 9. Thoughts that you would be better off or of hurting yourself in some way: Not at all Total score: 0 If you checked off any problems, how difficult have these problems made it for you to do your work, take care of things at home, or get along with other people?: not difficult at all Source: Developed by Drs. Chandan Miranda, Polly Mobley, Wood Torres and colleagues, with an educational gale from [employer]. Depression screen completed yes Social History Living Situation History Marital Status: Lives With: Family Housing: House Tobacco History Smoking Status: Never smoker Second Hand Smoke Exposure: No Alcohol History Alcohol Intake: Never Substance Use History Substance Use: no Domestic Abuse History Do You Feel Safe at Home: Yes Past Medical History Past Medical History Have you ever been diagnosed with any of the following: Neurological Problems Cerebrovascular Accident (CVA): No Transient Ischemic Attacks (TIA): No Dementia: No Alzheimer's Disease: No Parkinson's Disease: No Brain Tumor: No Meningitis: No Seizures: No Epilepsy: No Multiple Sclerosis: No Cerebral Palsy: No Amyotrophic Lateral Sclerosis (ALS/Margarette Gehrig's): No Guillain-[place] Syndrome: No Spina Bifida: No Paralysis: No Peripheral Neuropathy: No David's Palsy: No Subdural Hematoma: No Migraine: No Head Trauma: No Spinal Cord Injury: No Traumatic Brain Injury: No Cardiology Problems Myocardial Infarction: No Cardiac Arrhythmia: No Atrial Fibrillation: No Angina: No Heart Murmur: No Coronary Artery Disease: No Atherosclerotic Heart Disease: No Peripheral Vascular Disease: No Hypercholesterolemia: No Aneurysm: No Congestive Heart Failure: No Congenital Heart Disease: No Valvular Heart Disease: No Rheumatic Fever: No Cardiomyopathy: No Edema: No Pericarditis: No Cellulitis: No Hypertension: Yes (TAKES MED) Varicose Veins: No Respiratory Problems Chronic Obstructive Pulmonary Disease (COPD): No Asthma: No Bronchitis: No Emphysema: No Pneumonia: No Pulmonary Fibrosis: No Tuberculosis: Yes (2018 NO MED POSITIVE TEST) Pulmonary Embolism: No Pulmonary Edema: No Sleep Apnea: No CPAP Dependent: No Respiratory Aspiration: No Dyspnea: No Orthopnea: No Hx Cough: No Cough: No Wheezing: No Chest Deformities: No Smoking: No Smoking Cessation Counseling: No Smoking Exposure: No Tobacco Use: No Clubbing: No Exposure to Respiratory Irritants: No Intubation: No Stomache/Intestinal Problems Liver Cancer: No Hepatitis: No Cirrhosis: No Pancreatic Cancer: No Pancreatitis: No Celiac Disease: No Gall Bladder Disease: Yes (LAP 2002) Gastrointestinal Bleed: No Esophageal Varices: No Chapa's Esophagus: No Colitis: No Ulcerative Colitis: No Diverticulitis: No Diverticulosis: No Ulcer: No Colorectal Cancer: No Irritable Bowel: No Crohn's Disease: No Obstructive Bowel: No Hiatal Hernia: No Hemorrhoids: No Gastroesophageal Reflux Disease: Yes (OTC) Obesity: Yes Genital/Urinary Problems Renal Disease: No Kidney Stones: Yes (NO SURG) Polycystic Kidney Disease: No Neurogenic Bladder: No Inguinal Hernia: No Dialysis: No Reproductive Problems Breast Cancer: No Endometriosis: No Fibroids: No Genital Herpes: No Gonorrhea: No Pelvic Inflammatory Disease: No Polycystic Ovarian Syndrome: No Previous Pregnancies: Yes (X4) Syphilis: No Musculoskeletal Problems Muscular Dystrophy: No Myasthenia Gravis: No Marfan's Syndrome: No Bone Cancer: No Arthritis: No Rheumatoid Arthritis: No Osteoporosis: No Degenerative Disk Disease: Yes Gout: No Scoliosis: No Carpal Tunnel Syndrome: No Fibromyalgia: No Fractures: No Degenerative Joint Disease: No Osteomyelitis: No Poliovirus: No Head,Eye,Nose,Throat Problems Cataracts: No Glaucoma: No Blind: No Retinal Detachment: No Macular Degeneration: No Chronic Ear Infections: No Deafness: No Eye Prosthesis: No Endocrine Problems Diabetes Mellitus Type 1: No Diabetes Mellitus Type 2: Yes Hypoglycemia: No Bergheim's Syndrome: No Grady's Disease: No Hyperthyroidism: No Hypothyroidism: Yes (TAKES MED) Thyroid Cancer: No Parathyroid Disease: No Pituitary Disease: No Systemic Lupus Erythematosus: No Syndrome of Inappropriate Antidiuretic Hormone: No Adrenal Disease: No Graves' Disease: No Blood Problems Anemia: No Leukemia: No Hemophilia: No Thalassemia: No Sickle Cell Disease: No Clotting Problems: No Psychologic Problems Schizophrenia: No Recreational Drug Use: No Bipolar Disorder: No Depression: No Anxiety: No Behavior Problems: No Self-Mutilation: No Attention Deficit Disorder: No Attention Deficit Hyperactivity Disorder: No Depression: No Post Traumatic Stress Disorder: No Eating Disorder: No Other Problems Hospitalization: No Down Syndrome: No Autism: No Developmental Delay: No Cosmetic Surgery: No Shingles: No Falls: No Blood Transfusions: No Blood Transfusion Reaction: No Anesthesia Reactions: Yes (Nausea) Organ Transplant: No Chemotherapy: No Radiation Therapy: No Hyperbaric Therapy: No MRSA: No VRSA: No Vancomycin-Resistant Enterococci: No Human Immunodeficiency Virus (HIV): No Chicken Pox: Yes Measles: Yes Mumps: No Rubella ([place] Measles): No Pertussis: No Klebsiella Pneumoniae Carbapenemase Producing Bacteria: No Clostridium Difficile: No Hepatitis A: No Hepatitis B: No Hepatitis C: No Communicable Disease: No Cancer: No Cervical Cancer: No Lung Cancer: No Ovarian Cancer: No Surgical History Angioplasty: No Bariatric Surgery: No Breast Surgery: No Cancer Surgery: No Carotid Endarterectomy: No Pacemaker: No History of Present Illness HPI Narrative The patient is a 38 y/o Azeri speaking female who called today reporting pain and redness around her CS incision. She had a repeat CS with Dr Caceres on 06/22/24, No fevers/chills or N/V/D. She is . No heavy VB Exam Narrative Physical exam: Incision C/D/I. Small amount of erythema in both corners suggestive of early yeast cellulitis. Fundus firm, NT General General Appearance: alert, in no apparent distress, comfortable and well groomed Assessment & Plan Diagnosis / Problem List (1) Maternal care for low transverse scar from previous delivery: Status: Acute Plan: Possible early yeast cellulitis. Pt may be allergic to diflucan. Will order Nystatin powder. F/U in 3 weeks, (2) care following delivery: Status: Acute Office Procedures OB Clinic LOC & Office Proc's Nursing/Assessment Patient Status: Established Patient OB Clinic Nursing Assessment: BP Monitoring, Medication Reconciliation, Update PMH in EMR and Vital Signs OB Clinic Coordination of Care: Complex Care and Chronic Disease 1-5, Consent,records obtained, informed consent, Education Simp Pt/Fam and Staff clarify orders Established Patient Charge Established Patient Point Assignment: 100 Established Patient Point Charge: EP Level 3 (80-115)
== END 2024-07-14 10:30 | disposition home or self-care (01) ==
LOC: HODSOBC 09:49
PROVIDERS: Supervising Provider Obstetrics & Gynecology; Visit Provider Obstetrics & Gynecology
DX: Z39.2 Encounter for routine postpartum follow-up (principal); O90.89 Other complications of the puerperium, not elsewhere classified; G89.18 Other acute postprocedural pain
CPT/HCPCS: 99213; G0463

== ENCOUNTER 2024-07-26 11:11 | Outpatient (AMB) | payer OTHER, SELFPAY ==
--- NOTE | 2024-07-26 11:22 | GYNCLNT_ITS ---
Vital Signs 07/26/24 11:23 Weight 90.265 kg Weight Measurement Method Standing Scale BP 115/78 Blood Pressure Source Automatic Cuff Blood Pressure Location Left Upper Arm Position Sitting Respiration 18 Pulse 89 Pulse Source Monitor Temp 97.2 F Temp Source Oral Pulse Oximetry (%) 99 Oxygen Delivery Method Room Air Allergies/Home Meds Allergies & Medications Allergies No Known Allergies Allergy (Verified 07/26/24 11:24) Medication Reconciliation blood-glucose meter #1 ea 05/24/24 [Rx Confirmed 07/26/24] labetalol 200 mg tablet 200 mg PO BID 30 days #60 tabs 05/24/24 [Rx Confirmed 07/26/24] lancets 26 gauge #100 ea 05/24/24 [Rx Confirmed 07/26/24] metformin 500 mg tablet 500 mg PO BIDWMEAL 30 days #60 tabs 05/24/24 [Rx Confirmed 07/26/24] thyroid (pork) 15 mg tablet (Herron Thyroid) 15 mg PO QDAY 90 days #90 tabs 06/09/24 [Rx Confirmed 07/26/24] thyroid (pork) 90 mg tablet (Herron Thyroid) 90 mg PO QDAY 90 days #90 tabs 06/09/24 [Rx Confirmed 07/26/24] nystatin 100,000 unit/gram topical powder 1 applic topical TID #30 grams 07/14/24 [Rx Confirmed 07/26/24] amoxicillin 875 mg-potassium clavulanate 125 mg tablet 1 tab PO BID 7 days #14 tabs 07/26/24 [Rx] diclofenac potassium 50 mg tablet 50 mg PO TID 7 days #21 tabs 07/26/24 [Rx] Intake Visit Data Collection New Patient or Established: Established Patient (seen at [facility] within 3 years) Reason for Visit:: Follow-up for incisional pain, ongoing bleeding from incision web site admin Required: No Do You Feel Safe at Home: Yes Authorities Contacted: N/A PCP or OBGYN visit in last 3 months: Yes Date of Last PCP or OBGYN visit: 07/14/24 Hx Now: No Are you currently on any form of Control: No Pain Present Currently: No Pain Scale Used: Carrero-Schofield/Numerical Pain scale:: 0 Smoking Status Smoking Status: Never smoker 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 1. Little interest or pleasure in doing things: not at all 2. Feeling down, depressed, or hopeless: not at all Total score: 0 PHQ-9 3. Trouble falling or staying asleep, or sleeping too much: Not at all 4. Feeling tired or having little energy: Not at all 5. Poor appetite or overeating: Not at all 6. Feeling bad about yourself - or that you are a failure or have let yourself or your family down: Not at all 7. Trouble concentrating on things, such as reading the newspaper or watching television: Not at all 8. Moving or speaking so slowly that other people could have noticed? - Or the opposite - being so fidgety or restless that you have been moving around a lot more than usual: not at all 9. Thoughts that you would be better off or of hurting yourself in some way: Not at all Total score: 0 If you checked off any problems, how difficult have these problems made it for you to do your work, take care of things at home, or get along with other people?: not difficult at all Source: Developed by Drs. Chandan Miranda, Polly Mobley, Wood Torres and colleagues, with an educational gale from [employer]. Depression screen completed yes Social History Living Situation History Lives With: Family Housing: House Tobacco History Smoking Status: Never smoker Second Hand Smoke Exposure: No Alcohol History Alcohol Intake: Never Substance Use History Substance Use: no Domestic Abuse History Do You Feel Safe at Home: Yes Past Medical History Past Medical History Have you ever been diagnosed with any of the following: Neurological Problems Cerebrovascular Accident (CVA): No Transient Ischemic Attacks (TIA): No Dementia: No Alzheimer's Disease: No Parkinson's Disease: No Brain Tumor: No Meningitis: No Seizures: No Epilepsy: No Multiple Sclerosis: No Cerebral Palsy: No Amyotrophic Lateral Sclerosis (ALS/Margarette Gehrig's): No Guillain-Hebron Syndrome: No Spina Bifida: No Paralysis: No Peripheral Neuropathy: No David's Palsy: No Subdural Hematoma: No Migraine: No Head Trauma: No Spinal Cord Injury: No Traumatic Brain Injury: No Cardiology Problems Myocardial Infarction: No Cardiac Arrhythmia: No Atrial Fibrillation: No Angina: No Heart Murmur: No Coronary Artery Disease: No Atherosclerotic Heart Disease: No Peripheral Vascular Disease: No Hypercholesterolemia: No Aneurysm: No Congestive Heart Failure: No Congenital Heart Disease: No Valvular Heart Disease: No Rheumatic Fever: No Cardiomyopathy: No Edema: No Pericarditis: No Cellulitis: No Hypertension: Yes (TAKES MED) Varicose Veins: No Respiratory Problems Chronic Obstructive Pulmonary Disease (COPD): No Asthma: No Bronchitis: No Emphysema: No Pneumonia: No Pulmonary Fibrosis: No Tuberculosis: Yes (2018 NO MED POSITIVE TEST) Pulmonary Embolism: No Pulmonary Edema: No Sleep Apnea: No CPAP Dependent: No Respiratory Aspiration: No Dyspnea: No Orthopnea: No Hx Cough: No Cough: No Wheezing: No Chest Deformities: No Smoking: No Smoking Cessation Counseling: No Smoking Exposure: No Tobacco Use: No Clubbing: No Exposure to Respiratory Irritants: No Intubation: No Stomache/Intestinal Problems Liver Cancer: No Hepatitis: No Cirrhosis: No Pancreatic Cancer: No Pancreatitis: No Celiac Disease: No Gall Bladder Disease: Yes (LAP 2002) Gastrointestinal Bleed: No Esophageal Varices: No Chapa's Esophagus: No Colitis: No Ulcerative Colitis: No Diverticulitis: No Diverticulosis: No Ulcer: No Colorectal Cancer: No Irritable Bowel: No Crohn's Disease: No Obstructive Bowel: No Hiatal Hernia: No Hemorrhoids: No Gastroesophageal Reflux Disease: Yes (OTC) Obesity: Yes Genital/Urinary Problems Renal Disease: No Kidney Stones: Yes (NO SURG) Polycystic Kidney Disease: No Neurogenic Bladder: No Inguinal Hernia: No Dialysis: No Reproductive Problems Breast Cancer: No Endometriosis: No Fibroids: No Genital Herpes: No Gonorrhea: No Pelvic Inflammatory Disease: No Polycystic Ovarian Syndrome: No Previous Pregnancies: Yes (X4) Syphilis: No Musculoskeletal Problems Muscular Dystrophy: No Myasthenia Gravis: No Marfan's Syndrome: No Bone Cancer: No Arthritis: No Rheumatoid Arthritis: No Osteoporosis: No Degenerative Disk Disease: Yes Gout: No Scoliosis: No Carpal Tunnel Syndrome: No Fibromyalgia: No Fractures: No Degenerative Joint Disease: No Osteomyelitis: No Poliovirus: No Head,Eye,Nose,Throat Problems Cataracts: No Glaucoma: No Blind: No Retinal Detachment: No Macular Degeneration: No Chronic Ear Infections: No Deafness: No Eye Prosthesis: No Endocrine Problems Diabetes Mellitus Type 1: No Diabetes Mellitus Type 2: Yes Hypoglycemia: No [place]'s Syndrome: No Olayinka's Disease: No Hyperthyroidism: No Hypothyroidism: Yes (TAKES MED) Thyroid Cancer: No Parathyroid Disease: No Pituitary Disease: No Systemic Lupus Erythematosus: No Syndrome of Inappropriate Antidiuretic Hormone: No Adrenal Disease: No Graves' Disease: No Blood Problems Anemia: No Leukemia: No Hemophilia: No Thalassemia: No Sickle Cell Disease: No Clotting Problems: No Psychologic Problems Schizophrenia: No Recreational Drug Use: No Bipolar Disorder: No Depression: No Anxiety: No Behavior Problems: No Self-Mutilation: No Attention Deficit Disorder: No Attention Deficit Hyperactivity Disorder: No Depression: No Post Traumatic Stress Disorder: No Eating Disorder: No Other Problems Hospitalization: No Down Syndrome: No Autism: No Developmental Delay: No Cosmetic Surgery: No Shingles: No Falls: No Blood Transfusions: No Blood Transfusion Reaction: No Anesthesia Reactions: Yes (Nausea) Organ Transplant: No Chemotherapy: No Radiation Therapy: No Hyperbaric Therapy: No MRSA: No VRSA: No Vancomycin-Resistant Enterococci: No Human Immunodeficiency Virus (HIV): No Chicken Pox: Yes Measles: Yes Mumps: No Rubella (Upper Sorbian Measles): No Pertussis: No Klebsiella Pneumoniae Carbapenemase Producing Bacteria: No Clostridium Difficile: No Hepatitis A: No Hepatitis B: No Hepatitis C: No Communicable Disease: No Cancer: No Cervical Cancer: No Lung Cancer: No Ovarian Cancer: No Surgical History Angioplasty: No Bariatric Surgery: No Breast Surgery: No Cancer Surgery: No Carotid Endarterectomy: No Pacemaker: No History of Present Illness HPI Narrative Polina Vasquez is a 38-year-old German-speaking female, , who presents for follow-up one month and three days post repeat performed on June 15, 2024. She was previously seen for incisional pain and now reports ongoing concerns with her surgical site. The patient states she is experiencing more discomfort now than initially after the surgery. She describes noticing a small amount of blood when cleaning the incision site, particularly on the left side. The area was also noted to be slightly red. The patient denies fever, chills, or purulent discharge. She mentions that the bleeding is not daily but occurs on some days. The patient's symptoms appear to be impacting her daily functioning, as evidenced by her concern and need for medical evaluation. She has not been using a binder belt as previously recommended, which may have contributed to the formation of a blood clot under the skin, as explained by the provider. Medications and Supplements - Antifungal medication - For yeast infection - Urinary tract infection medication Review of Systems Skin: Positive for slight bleeding and redness at incision site. Genitourinary: Positive for minimal vaginal bleeding. Review of Systems Review of Systems Systems Reviewed: All systems reviewed, normal except as documented Exam General General Appearance: alert, in no apparent distress and healthy appearing Head Head exam: atraumatic Neck Neck exam: Present normal inspection and trachea midline Chest Chest inspection: Present normal inspection and symmetric chest wall rise Abdominal Abdominal exam: Present soft and pulsatile mass (left side of incision); Absent distention, tenderness, guarding or rebound External exam: Present normal external exam; Absent tenderness Neuro Neurological exam: Present oriented X3 Psych Psychiatric exam: Present normal affect and normal mood Assessment & Plan Diagnosis / Problem List (1) wound disruption: Status: Acute (2) care following delivery: Status: Acute (3) Encounter for surgical aftercare following surgery on the genitourinary system: Status: Acute Plan Polina Vasquez, a 38-year-old German-speaking female, presents for follow- up one month and three days post repeat , with concerns of incisional pain and bleeding. Post- Section Wound Complication Assessment: Patient is status post repeat section on 06/15/2024. She reports ongoing incisional pain and minimal bleeding from the left side of the incision site. On examination, a small fluid collection is noted on the left side of the incision. There is no report of fever, chills, or purulent discharge. The persistence of symptoms beyond one month post-operation, coupled with the presence of a fluid collection, suggests a possible seroma or hematoma formation, potentially complicated by a superficial wound infection. Plan: - Prescribe oral antibiotics (specific antibiotic not mentioned in transcript) - Instruct patient to wear a binder belt or elastic corset for abdominal compression - Follow-up appointment scheduled in 2 weeks - If symptoms persist at follow-up, consider ordering imaging studies (type not specified) - Discontinue previously prescribed medications (fluconazole for yeast infection and unspecified medication for urinary tract infection) Office Procedures OB Clinic LOC & Office Proc's Nursing/Assessment Patient Status: Established Patient OB Clinic Nursing Assessment: BP Monitoring, Medication Reconciliation, Update PMH in EMR and Vital Signs OB Clinic Coordination of Care: Consent,records obtained, informed consent, Education Simp Pt/Fam, Results/Orders obtained and Staff clarify orders Established Patient Charge Established Patient Point Assignment: 80 Established Patient Point Charge: EP Level 3 (80-115)
[2024-07-26 11:23] VITALS: BP 115/78; PULSE 89; RESP 18; TEMP 36.2; O2SAT 99
== END 2024-07-26 11:50 | disposition home or self-care (01) ==
LOC: HODSOBC 11:11
PROVIDERS: Supervising Provider Obstetrics & Gynecology; Visit Provider Obstetrics & Gynecology
DX: Z39.2 Encounter for routine postpartum follow-up (principal); O90.0 Disruption of cesarean delivery wound
CPT/HCPCS: 99213; G0463

== ENCOUNTER 2024-08-08 11:21 | Outpatient (AMB) | payer OTHER, SELFPAY ==
--- NOTE | 2024-08-08 16:02 | AMBOBPPN_ITS ---
Vital Signs 08/08/24 16:03 Weight 90.265 kg Weight Measurement Method Standing Scale BP 123/85 H Blood Pressure Source Automatic Cuff Blood Pressure Location Left Upper Arm Position Sitting Respiration 18 Pulse 89 Pulse Source Monitor Temp 97.2 F Temp Source Oral Pulse Oximetry (%) 98 Oxygen Delivery Method Room Air Allergies/Home Meds Allergies & Medications Allergies No Known Allergies Allergy (Verified 08/08/24 16:04) Medication Reconciliation blood-glucose meter #1 ea 05/24/24 [Rx Confirmed 08/08/24] labetalol 200 mg tablet 200 mg PO BID 30 days #60 tabs 05/24/24 [Rx Confirmed 08/08/24] lancets 26 gauge #100 ea 05/24/24 [Rx Confirmed 08/08/24] metformin 500 mg tablet 500 mg PO BIDWMEAL 30 days #60 tabs 05/24/24 [Rx Confirmed 08/08/24] thyroid (pork) 15 mg tablet (Olema Thyroid) 15 mg PO QDAY 90 days #90 tabs 06/09/24 [Rx Confirmed 08/08/24] thyroid (pork) 90 mg tablet (Olema Thyroid) 90 mg PO QDAY 90 days #90 tabs 06/09/24 [Rx Confirmed 08/08/24] nystatin 100,000 unit/gram topical powder 1 applic topical TID #30 grams 07/14/24 [Rx Confirmed 08/08/24] acetaminophen-caffeine 500 mg-65 mg tablet (Tension Headache) 1 tab PO Q4H PRN pain 7 days #42 tabs 08/08/24 [Rx Confirmed 08/08/24] Intake Visit Data Collection New Patient or Established: Established Patient (seen at [facility] within 3 years) Reason for Visit:: 2-month follow-up status post repeat , small amount of blood-stained discharge from left half of incision site, headache and dizziness Seen by Clinical Staff ONLY (RN/MA): No Investor Relations Specialist Required: Yes Investor Relations Specialist'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 Do You Feel Safe at Home: Yes Authorities Contacted: N/A PCP or OBGYN visit in last 3 months: Yes Date of Last PCP or OBGYN visit: 07/26/24 Hx Now: No Are you currently on any form of Control: No Pain Present Currently: No Pain Scale Used: Carrero-Schofield/Numerical Pain scale:: 0 Smoking Status Smoking Status: Never smoker 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 Past Medical History: No Hx Neurological Disorders, Yes Hx Hypothyroidism (TAKES MED), No Hx Hyperthyroidism, No Hx Breast Cancer, Yes Hx Cardiac Disorders, Yes Hx Hypertension (TAKES MED), No Hx Cancer, No Hx Blood Disorders, No Hx Anemia, Yes Hx Gastrointestinal Disorders, No Hx Renal Disease, No Hx Diabetes Mellitus Type 1, Yes Hx Diabetes Mellitus Type 2 and No Hx Polycystic Ovarian Syndrome Questionnaires Covid-19 Vaccine Questionnaire Has patient been vacinated for Covid-19 Have you been vacinated for Covid-19: Yes Social History Living Situation History Lives With: Family Housing: House Tobacco History Smoking Status: Never smoker Second Hand Smoke Exposure: No Alcohol History Alcohol Intake: Never Substance Use History Substance Use: no Domestic Abuse History Do You Feel Safe at Home: Yes HPI Interval History: Polina Vasquez is a 38-year-old Puerto Rican-speaking female presenting for a 2- month follow-up status post repeat performed on June 15, 2024. She initially reported a small amount of blood-stained discharge from the left half of her incision site, for which she was prescribed oral antibiotics and instructed to wear an abdominal binder. At today's visit, the patient reports that the discharge from her incision site has resolved. She confirms adherence to the prescribed antibiotics and continues to wear the abdominal binder as instructed. The patient is experiencing ongoing symptoms including a pulling and stretching sensation, as well as cramps in the incision area, which she understands are part of the normal healing process. The patient's primary complaint today is frequent headaches accompanied by dizziness. She describes the headaches as severe, noting that they are affecting her overall well-being. The patient also reports experiencing neck pain, which she believes is related to her headaches. Despite these symptoms, she states that she has been meeting her post-operative and milestones. Medications and Supplements - Oral antibiotics - Prescribed for small amount of blood-stained discharge from left half of incision site - Finished taking Review of Systems General: Positive for dizziness. HEENT: Positive for headaches. Musculoskeletal: Positive for pulling sensation, stretching, and cramps in the abdominal area. Neurological: Positive for neck pain. Review of Systems Review of Systems ROS limited to current DEVELOPMENT EXPERT complaints: Yes Exam Narrative Physical exam: Abdomen: Incision site healed. No visible discharge or signs of infection noted. Office Procedures OB Clinic LOC & Office Proc's Nursing/Assessment Patient Status: Established Patient OB Clinic Nursing Assessment: BP Monitoring, Medication Reconciliation, Update PMH in EMR and Vital Signs OB Clinic Coordination of Care: Consent,records obtained, informed consent, Education Simp Pt/Fam, Results/Orders obtained and Staff clarify orders Special Needs: Language special needs Established Patient Charge Established Patient Point Assignment: 80 Established Patient Point Charge: EP Level 3 (80-115) Assessment & Plan Diagnosis / Problem List (1) wound disruption: Status: Acute (2) care following delivery: Status: Acute (3) Encounter for surgical aftercare following surgery on the genitourinary system: Status: Acute (4) Migraine: Status: Acute (5) Tension headache: Status: Acute Plan Polina Vasquez, a 38-year-old Puerto Rican-speaking female, presents for 2-month follow-up status post repeat on June 15, 2024, with complaint of small blood-stained discharge from left incision site. Post- section wound healing Assessment: Patient reported small amount of blood-stained discharge from the left half of her incision site. She was previously prescribed oral antibiotics and instructed to wear an abdominal binder. On examination today, the incision site appears to be healed and looks very good. Patient reports sensations of pulling, stretching, and cramps, which are assessed as normal parts of the healing process. Plan: - Continue wearing abdominal binder for another month - Follow up in 15 days Headache and dizziness Assessment: Patient reports experiencing lots of headache and dizziness. Given the patient's recent section, there is a concern for potential preeclampsia. Further evaluation is necessary to rule out this condition. Plan: - Order blood tests to rule out preeclampsia - Prescribe migraine-specific medication - Informed patient that the medication is safe and can be given even during - Follow up in 15 days to review lab results and assess efficacy of migraine medication
[2024-08-08 16:03] VITALS: BP 123/85; PULSE 89; RESP 18; TEMP 36.2; O2SAT 98
== END 2024-08-08 11:33 | disposition home or self-care (01) ==
LOC: HODSOBC 11:21
PROVIDERS: Supervising Provider Obstetrics & Gynecology; Visit Provider Obstetrics & Gynecology
DX: Z39.2 Encounter for routine postpartum follow-up (principal); O90.0 Disruption of cesarean delivery wound; G44.209 Tension-type headache, unspecified, not intractable; G43.909 Migraine, unspecified, not intractable, without status migrainosus; E11.9 Type 2 diabetes mellitus without complications; Z79.84 Long term (current) use of oral hypoglycemic drugs; E03.9 Hypothyroidism, unspecified; I10 Essential (primary) hypertension; Z79.899 Other long term (current) drug therapy; Z79.890 Hormone replacement therapy
CPT/HCPCS: 99213; G0463

== ENCOUNTER → 2024-08-08 | Outpatient (CLI) | payer BC, SELFPAY ==
[2024-08-08 12:29] LABS: Basophils % (Auto) 0 % (0-2.5); Eosinophils # (Auto) 0.3 Thou/mm3 (0.0-0.5); Eosinophils % (Auto) 3 % (0-10); Hematocrit 38.9 % (36.0-46.0); Hemoglobin 12.9 g/dL (12.0-16.0); Immature Granulocytes % (Auto) 0 % (0-0); Immature Granulocytes Auto 0.03 Thou/mm3 (0.00-0.00); Lymphocytes % (Auto) 32 % (10-50); Mean Corpuscular HGB Conc 33.2 g/dl (31.0-37.0); Mean Corpuscular Hemoglobin 29.4 pg (25.0-35.0); Mean Corpuscular Volume 89 fL (80-100); Monocytes # (Auto) 0.6 Thou/mm3 (0.0-0.8); Monocytes % (Auto) 6 % (0-12); Neutrophils # (Auto) 5.4 Thou/mm3 (1.8-7.7); Neutrophils % (Auto) 58 % (37-80); Nucleated Red Blood Cell % 0 /100 WBC (0); Platelet Count 304 Thou/mm3 (140-440); RDW Standard Deviation 40.9 fL (36.4-46.3); Red Blood Count 4.39 Miln/mm3 (4.00-5.20); White Blood Count 9.3 Thou/mm3 (3.6-11.0)
[2024-08-08 12:48] LABS: Alanine Aminotransferase 105 U/L (10-49); Albumin, Serum 4.5 gm/dL (3.5-5.0); Albumin/Globulin Ratio 1.8 (1.2-2.2); Alkaline Phosphatase 121 U/L (46-116); Anion Gap 11 (7-16); Aspartate Amino Transferase 55 U/L (0-34); BUN/Creatinine Ratio 15 Ratio (12-20); Bilirubin,Total 0.4 mg/dL (0.3-1.2); Blood Urea Nitrogen 12 mg/dL (9-23); Calcium 9.2 mg/dL (8.3-10.6); Calcium (Corrected) 9.2 mg/dL (8.5-10.1); Carbon Dioxide 26.9 mMol/L (20.0-31.0); Chloride 104 mMol/L (98-107); Creatinine (Component) 0.8 mg/dL (0.6-1.3); Globulin 2.5 gm/dL (2.3-3.5); Glucose 97 mg/dL (74-106); LDH (Lactate Dehydrogenase) 215 U/L (120-246); Osmolality,Calculated 282 (275-295); Potassium 4.5 mMol/L (3.4-5.1); Sodium 142 mMol/L (136-145); Thyroid Stimulating Hormone 0.04 uIU/mL (0.55-4.78); Uric Acid 5.4 mg/dL (3.1-7.8); eGFR > 60 See Note
[2024-08-08 12:52] LABS: Collection Type, Urine Clean Catch
[2024-08-08 14:11] LABS: Bacteria,Urine Rare; Bilirubin,Urine Negative (Negative); Blood,Urine Negative (Negative); Clarity,Urine Clear (Clear/Hazy); Color,Urine Lt-Yellow (Lt Yel-Yel); Glucose, Urine Negative (Negative); Ketones,Urine Negative (Negative); Leukocyte Esterase,Urine Negative (Negative); Nitrite,Urine Negative (Negative); PH,Urine 6.5 (5.0-7.0); Protein,Urine Negative (Neg - Trace); RBC,Urine 1 /hpf (0-3); Specific Gravity,Urine 1.011 (1.001-1.035); Squamous Epithelial Cell,Urine 1 /hpf (0-5); Urobilinogen,Urine Negative mg/dL (0.0-1.0); WBC,Urine < 1 /hpf (0-5)
== END | disposition home or self-care (01) ==
LOC: COPL 11:41
PROVIDERS: PCP Physician Assistant; Referring Provider Obstetrics & Gynecology; Visit Provider Obstetrics & Gynecology
DX: Z39.2 Encounter for routine postpartum follow-up (principal); O14.95 Unspecified pre-eclampsia, complicating the puerperium
CPT/HCPCS: 36415; 80053; 81001; 83615; 84443; 84550; 85025

== ENCOUNTER → 2024-12-12 | Outpatient (CLI) | payer BC, SELFPAY ==
--- NOTE | 2024-12-12 09:45 | XR_ITS ---
Examination: Abdomen sonogram, Limited Date and time of exam: December 12, 2024 0934 hours INDICATIONS: Right lower abdominal pain left lower abdominal pain beginning 3 months ago. Technique: Real-time marie scale transabdominal sonographic images of the abdomen obtained. Findings: No sonographic visualization appendix Lymph node in the right lower abdomen and 23 x 6 x 17 mm IMPRESSION: No sonographic visualization appendix
== END | disposition home or self-care (01) ==
PROVIDERS: PCP Obstetrics & Gynecology; Referring Provider Obstetrics & Gynecology; Visit Provider Obstetrics & Gynecology
DX: R10.30 Lower abdominal pain, unspecified (principal)
CPT/HCPCS: 76705